=== PATIENT | male | born 1945 | race Caucasian/White ===

== ENCOUNTER 2016-05-07 16:55 | Inpatient (IN) | payer MEDICARE ==
[~2016-05-07] VITALS: Ht 172.7 cm; Wt 111.6 kg
--- NOTE | 2016-05-08 16:28 | ER ---
ADMIT: 05/07/2016 RM/LOC: 525 [facility] MR#: [id number] 2620 [facility] [address] [place] [phone] NICKY CASILLAS [address] [place] [place] [address] Emergency Room Report SEX: M AGE: 71 : 1945 DATE: 05/07/2016 ADDENDUM: A 71-year-old white male with COPD, coming in with coughing spell just not getting any better. CBC and chemistry are okay except his white count is up a little bit at 14.9, but could be due to steroids. Flu was negative. BNP was slightly up at 523. Blood gas on 3 L 7.46, pCO2 of 34, PO2 of 95. EKG nothing acute except he has chronic atrial fibrillation and he is little tachycardic. I gave him DuoNeb treatment and then 20 of Decadron IV. [facility] I spoke with Dr. Schrader, Dr. Negrete, and then they will need to admit. Advised, understands. CONDITION ON DISCHARGE: Good. Alvaro Madrid MD/ mack JOB #: [id number] CC: Hood Schrader MD, Attending Physician Hood Schrader MD, Family Physician
--- NOTE | 2016-05-11 08:30 | HP ---
ADMIT: 05/07/2016 RM/LOC: 525 [facility] MR#: [id number] [address] [facility] [address] [place] [phone] NICKY CASILLAS [address] [place] [address] History and Physical SEX: M AGE: 71 : 1945 DATE OF SERVICE: BRIEF HISTORY OF PRESENT ILLNESS: This is a 71-year-old [place] patient with COPD, who presents to the ER after an episode of acute shortness of breath and nausea resulting in a small stumble in a parking lot this evening. He had his son bring him into the ER for evaluation. The patient does have a history of COPD. He is on inhalers at home and chronically on 3 L of oxygen. He states that he uses it most of the time, but sometimes fine, he can get around his hose okay without any oxygen at all. Two days ago, he said he felt perfectly fine. Yesterday, he noted that he had some worsening short of breath. He does chronically have a cough with sputum production. It has been mildly increased over the last 24 hours. The patient denies any fevers or chest pain. In the emergency room, x-ray shows some interstitial markings, cardiomegaly, hyperinflation. The patient was initially hypoxic, but improved on supplemental oxygen. The [facility] is on diversion, so he is being admitted via [facility] for chronic obstructive pulmonary disease exacerbation. 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 SOCIAL HISTORY: The patient quit smoking a few years ago, quit drinking alcohol in 1987. FAMILY HISTORY: Noncontributory. SURGICAL HISTORY: Bilateral inguinal hernia repair and T and A as a child. MEDICATIONS: Still being obtained, although we placed on the chart when available. ALLERGIES: VICODIN AND MORPHINE, SPIRONOLACTONE, BUPROPION. REVIEW OF SYSTEMS: GENERAL: No fevers, headaches or weakness. HEENT: No sore throat, ear pain, runny nose or eye problems. CARDIOVASCULAR: Some mild lower extremity swelling, although no chest pain or palpitations. PULMONARY: History of COPD, chronic bronchitis, cough with mild sputum production worsening over the last day chronically on 3 L of oxygen at home. ABDOMEN: No nausea, vomiting, abdominal pain, or diarrhea. EXTREMITIES: Does show some chronic osteoporosis and low back pain. PHYSICAL EXAMINATION: VITAL SIGNS: Temp 97.3, heart rate 101, respirations 20, blood pressure 126/76, O2 saturation 98% on 3 L of O2. GENERAL: The patient is shaky from DuoNeb treatments, otherwise no acute distress. HEENT: EOMI. Normocephalic, atraumatic. No JVD. No carotid bruit noted. No lymphadenopathy palpated. CARDIOVASCULAR: Regular rhythm and rate. No murmurs, rubs, or gallops. ADMIT: 05/07/2016 RM/LOC: 525 [facility] MR#: [id number] [address] [place] [id number] VINNY [address]Y [address] [place] [address] History and Physical SEX: M AGE: 71 : 1945 PULMONARY: Right-sided or rhonchi. Left side clear to auscultation. ABDOMEN: Obese, nontender. Normoactive bowel sounds. EXTREMITIES: Show clubbing of the fingernails. Trace bilateral lower extremity edema, but no cyanosis. LABS AND IMAGING: White count 14.9, hemoglobin 14.3. Creatinine elevated at 1.4. Procal is negative. ASSESSMENT AND PLAN: 1. Chronic obstructive pulmonary disease exacerbation. Scheduled DuoNeb and p.r.n. breathing treatments as well. IV steroids b.i.d. and azithromycin with supplemental oxygen. 2. Hypertension. 3. Coronary artery disease. 4. Atrial fibrillation. 5. Diabetes. We will obtain patient's medication list and continue medications as appropriate. Vladimir Negrete MD Resident / Hood Schrader MD / modl JOB #: [id number] CC: Hood Schrader, Attending Physician Hood Schrader, Family Physician
--- NOTE | 2016-05-19 15:02 | CO ---
ADMIT: 05/10/2016 RM/LOC: 525 [facility] MR#: [id number] 2620 [facility] [address] [place], [place] [address] NICKY CASILLAS [address] [place] [address] Consultation SEX: M AGE: 71 : 1945 DATE OF CONSULTATION: 05/15/2016 ATTENDING PHYSICIAN: Hood Schrader CONSULTING PHYSICIAN: Irwin Ramirez MD REASON FOR CONSULT: Possible bradycardia and chest pain. HISTORY OF PRESENT ILLNESS: Nicky is a 71-year-old with chronic COPD, who was admitted with a COPD exacerbation. He has been here since the 05/07. His cardiac history is significant for atrial fibrillation which I think is permanent and they have been treating with [facility]. He is on chronic anticoagulation. He denies cardiac disease. He was admitted with increasing shortness of breath. He has been receiving steroids and antibiotics for COPD exacerbation. Last night, in the middle the night, he said he awoke with a very sharp, severe chest pain that went across his entire chest. It was rather brief and lasted 10 to 15 seconds associated with worsening shortness of breath. The nurses were concerned because they thought he was bradycardic. He then had problems with reflux later in the night. His cardiac enzymes have been negative. He has been now placed on telemetry. Since being on telemetry, he has not had any significant bradycardia. He denies syncope or presyncope. He said he has never had pain like this before. He does have some chronic lower extremity edema, but denies other manifestations of chronic heart failure which is somewhat confused by his chronic COPD. His troponin was checked last night and was unremarkable. Currently, he is resting comfortably. He denies any pain. He is trying to get some rest. PAST MEDICAL HISTORY: ALLERGIES: ALLERGIES TO MORPHINE, HYDROCODONE, ACETAMINOPHEN, SPIRONOLACTONE, AND BUPROPION. HOME MEDICATIONS: Include: 1. Albuterol inhaler q.i.d. 2. He was on Augmentin b.i.d. 3. Alendronate 70 mg. 4. Aspirin 81 daily. 5. Atorvastatin 20 daily. 6. Budesonide inhaler. 7. Calcium supplement. 8. Vitamin D 2000 units daily. 9. Pradaxa 150 b.i.d. 10.Diltiazem 120 daily. 11.Docusate as needed. 12.Doxycycline 100 b.i.d. 13.Eplerenone 25 daily. 14.Finasteride 5 daily. ADMIT: 05/10/2016 RM/LOC: 525 [facility] MR#: [id number] [address] [address] NICKY CASILLAS [facility] [address] [place], [place] [id number] Consultation SEX: M AGE: 71 : 1945 15.Flonase 2 sprays daily. 16.Lasix 40 mg daily. 17.Gabapentin 300 daily. 18.Guaifenesin 400 q.i.d. 19.Multivitamin daily. 20.Pantoprazole 40 daily. 21.Prednisone, he was on a taper. 22.Tramadol p.r.n. He is on migraine p.r.n. medication. ILLNESSES: Include his COPD; atrial fibrillation, which I believe is permanent; history of diabetes; migraine headaches; hyperlipidemia; history of hypertension. PAST SURGICAL HISTORY: Includes bilateral inguinal hernia repairs and a tonsillectomy as a child. He underwent an appendectomy in 2006. FAMILY HISTORY: His father had an HI when he was 75 years old. His mother of kidney failure. He has one brother and two sisters both of which are fairly healthy. SOCIAL HISTORY: Quit smoking "too late." It was about a year ago. 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 He is from [place], and his was from [place], but they are , they have four children. He denies using any alcohol. REVIEW OF SYSTEMS: A full 12-point review of systems was reviewed with the patient and noncontributory other than that mentioned above. PHYSICAL EXAMINATION: VITAL SIGNS: Blood pressure is 120/78, his pulse is in the 80s and irregular, respirations 18, he is afebrile, O2 sats 94% on supplemental oxygen. EYES: Sclerae clear. No xanthelasmas. SKIN: Mildly pale. Sequoyah, warm and dry. ENT: I cannot hear his carotid arteries or assess JVD because of his obesity. CHEST: Diffuse wheezes throughout, symmetric respirations. HEART: Distant. It is irregularly irregular. No significant murmurs, rubs, or gallops are noted. Difficult over his lung sounds. ABDOMEN: Protuberant to morbidly obese. Soft and nontender. Extremities. There is hair loss over the lower extremities with mild edema bilaterally up to his knees. MUSCULOSKELETAL: Gait is huyen PSYCHIATRIC: Alert and oriented. Mood and affect are appropriate. LABORATORY AND DIANGNOSTIC DATA: A 12-lead EKG shows underlying atrial fibrillation and low voltage. No definitive Q-waves. Sodium 137, potassium 4.8, BUN 25, glucose 152, creatinine is 1.1. AST and ADMIT: 05/10/2016 RM/LOC: 525 [facility] MR#: [id number] [address] [address] NICKY CASILLAS [address] [place] [address] Consultation SEX: M AGE: 71 : 1945 ALT were unremarkable. White count 17.4 with a hemoglobin of 13.2, and platelet count 180,000. Chest x-ray from this morning, shows some mild pulmonary hyperinflation and a few bibasilar opacities. No obvious pulmonary vascular congestion. IMPRESSION: 1. Atypical chest pain. 2. Chronic obstructive pulmonary disease exacerbation. 3. Permanent atrial fibrillation on chronic anticoagulation. 4. Diabetes. 5. Former tobacco abuse. 6. Obesity. RECOMMENDATIONS: Apparently, nursing was questioning whether he was bradycardic during this episode of chest pain. His chest pain is atypical. They were sharp and occurred at rest and was fleeting. He was not on telemetry, so I cannot confirm his rhythm during his episode of chest pain. We will check a couple sets of enzymes to make sure there is no obvious ischemic event. We will monitor him on telemetry to check for any bradycardia. Unless there is significant clinical change including an abnormal echo which we will do tomorrow, recurrent and significant symptoms, or increasing cardiac biomarkers, I will consider an outpatient stress test for further evaluation. Irwin Ramirez MD/ mack JOB #: [id number] CC: Hood Schrader, Attending Physician Hood Schrader, Family Physician Vladimir Negrete MD Resident
--- NOTE | 2016-05-19 20:36 | CO ---
ADMIT: 05/10/2016 RM/LOC: 525 [facility] MR#: [id number] [address] [address] NICKY KULKARNI [address] [place] [address] Consultation SEX: M AGE: 71 : 1945 DATE OF CONSULTATION: 05/18/2016 ATTENDING PHYSICIAN: Hood Schrader CONSULTING PHYSICIAN: Hal Fernandez MD LOCATION OF SERVICE: [facility]. REASON FOR CONSULTATION: Dr. Schrader has requested our consultation for goals and options of care. HISTORY OF PRESENT ILLNESS: This is a pleasant 71-year-old, elderly male, who [facility] and [facility] for his medical needs. He does report completing recent pulmonary function testing, but is unaware of those results. He does carry a medical diagnosis of COPD and does have a significant history of smoking, atrial fibrillation, diabetes, hyperlipidemia, hypertension. He is chronically on 3 L of oxygen per nasal cannula at home. He reports he is not on chronic steroids at home. He is unaware if he follows with a electric organ checker. He reports 2 days prior to admit on 05/07/2016, he developed a worsening shortness of breath. He denied fevers or chest pain and presented to the emergency room for further evaluation and treatment. He was found to be hypoxic and is currently under treatment for COPD exacerbation, pneumonia, acute on chronic hypoxic respiratory failure. We were asked by Dr. Schrader to further evaluate goals and options of care in light of his significant COPD. Current functional status reflects a palliative performance score of around 50. He is ambulating with assisted devices. He reports he is dyspneic with any activity. He reports, he does need assistance with self care. He is able to feed himself. His intake is reduced. His conscious level is full. Prior to admission, his functional status reflects a palliative performance score of around 60-70 per his report. He was ambulating with minimal assist, able to perform his own ADL. He was still driving. He reports his appetite was normal and his conscious level was full. He does complain of dyspnea with conversation as well as any activity. He reports anxiety comes when he experiences his shortness of breath. He explains at home he has had moments where he just could not get air and that he felt he was suffocating. He denies pain. He denies nausea, vomiting, or constipation. He does report of regular bowel movements. He does report fatigue. 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 SOCIAL HISTORY: He currently lives in [place] with his son, and his family. He is hopeful to arrange different living arrangements in the future. He is . He does have 4 kids. He did spend some time in the [employer] and ADMIT: 05/10/2016 RM/LOC: 525 [facility] MR#: [id number] [address] [address] NICKY KULK[address]NI [address] [address] Consultation SEX: M AGE: 71 : 1945 was in [place]. He has a significant history of smoking starting in 1962. He reports he quit in 2015. He reports his heaviest was during [place] where he would smoke 3-4 cartons a week. He reported his average after the [employer] was around 2 packs per day. He reports he started drinking mostly beer, but really anything he could drink that was alcohol, started in 1962 and quit in 1987. He is Jain. [facility]. ADVANCED DIRECTIVE AND CODE STATUS: He does have healthcare [id number] which is his son Salazar Kulkarni at #[phone]. He is a full code status. FAMILY HISTORY: Reviewed and noncontributory. CURRENT MEDICATIONS: Include: 1. Mucinex. 2. Tiazac. 3. Deltasone. 4. Vancomycin. 5. Zosyn. 6. Pepcid. 7. NovoLog. 8. Fosamax. 9. Remeron. 10.Pradaxa. 11.Lipitor. 12.Multivitamin. 13.Neurontin. 14.Lasix. 15.Flonase. 16.Proscar. 17.Inspra. 18.Colace. 19.Vitamin D. 20.Oyster shell calcium. 21.ASA. 22.Zomig. 23.Ultram. 24.Pulmicort. 25.Mucomyst. 26.DuoNeb. 27.Maalox. 28.Tylenol. ALLERGIES: MORPHINE, HYDROCODONE, ACETAMINOPHEN, SPIRONOLACTONE, BUPROPION. REVIEW OF SYSTEMS: A 10-point review of system was conducted, however, was unremarkable except as noted in HPI and PMH. PHYSICAL EXAMINATION: CONSTITUTIONAL: Weight is 112.7 kg. Please see medical ADMIT: 05/10/2016 RM/LOC: 525 [facility] MR#: [id number] [address] [place] [phone] NICKY KULKARNI [address] [place] [address] Consultation SEX: M AGE: 71 : 1945 record for height and BMI. GENERAL STATUS: This is an elderly male, in no acute distress, alert and oriented, able to participate fully in consultation. VITAL SIGNS: Temperature of 97.2, heart rate 102, respiratory rate 18, blood pressure 129/86. He is on 3 L of oxygen per nasal cannula, and oxygenating at 98%. HEENT: Head is normocephalic, atraumatic. He is not wearing glasses. Pupils are 4 mm. PERRLA. Hearing is intact bilaterally. Oral mucosa is pink and moist. Dentition is worn. Anicteric sclerae. Conjunctivae pale. NECK: No lymphadenopathy. Trachea is midline. Supple. No JVD. RESPIRATORY STATUS: Respiratory rate is regular, slightly labored with activity. He does have rhonchus bilaterally anteriorly and posteriorly. He does have an expiratory wheeze with prolonged expiratory phase. CARDIOVASCULAR: Rate and rhythm are regular at this time. I do not auscultate rubs, murmurs, clicks, or gallops. GASTROINTESTINAL: Abdomen is obese, nontender, nondistended. Positive bowel sounds in all 4 quadrants. EXTREMITIES: Upper and lower extremities are free of cyanosis or clubbing. He does have bilateral lower extremity edema at 3+. NEUROLOGICAL: He is alert and oriented x3. He does follow commands. He moves all limbs. INTEGUMENTARY: Skin temperature is warm. Skin is intact. PSYCHIATRIC: Affect is appropriate. Insight is intact. He is cooperative with cares. DIAGNOSTIC DATA: Laboratory work reveals sodium 140, potassium 4.6, chloride 103, urea 34, glucose 134, creatinine 1.1, albumin 2.6 on May 14. WBC 18.3, hemoglobin 13.3, hematocrit 40.5, and platelets 167. RADIOLOGY: Reports have been reviewed, please see EMR for details. IMPRESSION AND PLAN: 1. Physical debility. 2. Dyspnea with rest intermittently, with talking and any activity. 3. Anxiety, Mr. Kulkarni associates this with dyspnea. 4. Chronic obstructive pulmonary disease with an acute exacerbation. Baseline needs are oxygen supplementation 24 hours a day, 7 days a week at 3 L per nasal cannula. He is not on chronic steroids per his report and he continues his pulmonary inhalers at home. 5. History of significant tobacco use. Smoking from 1963 to 2016, average 2 packs per day but did smoke 3-4 cartons a week in the [place]. 6. Pneumonia. 7. Acute on chronic hypoxic respiratory failure. 8. Permanent atrial fibrillation, currently on anticoagulation with Pradaxa. 9. Diabetes type 2. 10.Obesity. 11.Bladder wall density with recent scrotal abscess with extension to bladder. ADMIT: 05/10/2016 RM/LOC: 525 [facility] MR#: [id number] 2620 [facility] [address] [place], [place] [address] NICKY KULKARNI [address] [place] [address] Consultation SEX: M AGE: 71 : 1945 12.History of alcohol abuse. From 1962 to 1987. 13.Palliative care. 14.Full code status. I did have a nice long talk with Mr. Kulkarni at the bedside and we did review his past medical history, as well as his current hospitalization needs. He expresses being aware of his COPD needs, but feels he is unaware of the severity of his COPD. Mr. Kulkarni does report "I just had pulmonary [facility]." I will request these records to review to help guide us and communication concerning the severity of his COPD. He does complain of dyspnea with rest and activity and does associate anxiety with this experienced dyspnea. He explains "at times I just do not think I will make it." I will trial low-dose OxyFAST as he is allergic to morphine and continue to monitor. He may need a trial of Xanax in addition to OxyFAST if his anxiety is not controlled. We discussed goals for his care and his #1 goal is to get better and to get home and work with family on a new living arrangement. We did discuss code status options, full code versus do not resuscitate/do not intubate status and at this time he does confirm a full code status. He will ponder all options, but does request more information concerning the severity of his COPD prior to making any changes in that decision. Much support given during this consultation. I did offer to call his son/healthcare power-of- trademark attorney, Salazar Kulkarni, however, the patient declined that at this time. Patient reports that he will talk to his family about this consultation. We will continue to follow Mr. Kulkarni during this hospitalization and continue our discussion concerning goals and options of care as more information is available. I have discussed this consultation with nursing staff. Laly Kelly APRN will follow up on 05/19/2016. I would like to thank Dr. Schrader for the invitation to participate in Mr. Kulkarni's care. Total consultation time was from 0945 hours to 1046 hours on 05/18/2016 by the Palliative Medicine ROPE TWISTING MACHINE OPERATOR. Greater than 50% of time was spent in counseling and coordination of care at the bedside. Mayela Loredo APRN / Hal Fernandez MD / mack JOB #: [id number] CC: Hood Schrader, Attending Physician Hood Schrader, Family Physician
--- NOTE | 2016-06-09 07:39 | DS ---
ADMIT: 05/10/2016 RM/LOC: 525 [facility] MR#: [id number] [id number] [facility] [address] [place] [phone] NICKY CASILLAS [address] [place] [address] Discharge Summary SEX: M AGE: 71 : 1945 ADMISSION DATE: 05/10/2016 DISCHARGE DATE: 05/20/2016 DISCHARGE DIAGNOSES: 1. Acute COPD (chronic obstructive pulmonary disease) exacerbation, resolved. 2. Pneumonia. 3. Atrial fibrillation. 4. Type 2 diabetes. 5. Obesity. 6. History of tobacco abuse. 7. Debility. 8. Anxiety. 9. Bladder wall thickening thought to represent scarring from recent scrotal infection, resolved. CONSULTATIONS: 1. Pulmonology. 2. Supportive care. 3. Cardiology. BRIEF HISTORY OF PRESENT ILLNESS: The patient is a 71[facility]-old [facility] patient, with history of COPD who presented to the ER with an episode of acute shortness of breath that caused him to stumble and fall in the parking lot. He is chronically on 3 L of oxygen at home. Previously had felt well two days prior, but had worsening shortness of breath, cough with sputum production over the last 24 hours. In the emergency room, the patient was initially hypoxic but improved on supplemental oxygen. The [facility] was on [facility] so he was admitted via [facility] for COPD (chronic obstructive pulmonary disease) exacerbation. Started on DuoNebs, IV steroids and IV azithromycin. HOSPITAL COURSE: Mucomyst was added to the patient's respiratory schedule. He was also started on Rocephin and blood sugars were checked given his type 2 diabetes. IV steroids were stopped on hospital day three and he was switched to a p.o. regimen. He remained on 3 L of O2, which is his chronic home dose. The [facility] remained on [facility] and so the patient stayed and became inpatient status in our hospital. On hospital day four, the patient's vitals were clinically stable and labs had improved but he was still hesitant to go home. IV antibiotics were discontinued. He was started on oral Keflex and one last chest x-ray was performed before the patient was to be discharged. Chest x- ray showed new developing bilateral lower lobe opacities so dismissal was cancelled. The patient was given a midline IV and started on Zosyn and vancomycin for suspected hospital-acquired pneumonia. The patient was restarted on IV steroids and breathing treatments continued. On 05/15, over night the patient became bradycardic with heart rate into the 30s and complained of increased chest pain. The patient was changed to tele status and Cardiology was consulted for his symptomatic bradycardia. They diagnosed the patient with atypical chest pain, COPD exacerbation and permanent atrial fibrillation for which he is already on Pradaxa. An echo was ordered, however ADMIT: 05/10/2016 RM/LOC: 525 [facility] MR#: [id number] [address] [place] [phone] [place] [address] Discharge Summary SEX: M AGE: 71 : 1945 one had recently been done in the [place] so that echo was obtained and reviewed. Social Work was consulted for possible [facility] facility placement as patient's clinical status and frailty became more of an issue and concern. Abdominal ultrasound was ordered due to the patient's clinical ascites. It was negative and attributed to the patient's increased steroids and IV fluids that he has been receiving during his hospitalization. IV steroids were again stopped and he was replaced with an oral steroid taper. On the ultrasound, a bladder wall density was noted but son informed us that the patient recently had a scrotal abscess that was treated with antibiotics and this was thought to be bladder scarring due to that infection. Social Work continued to look into [facility] facility options. The [facility] remain on [facility]. Cardiology increased the patient's Cardizem to help control heart rate. There was no additional chest pain so they signed off attributing that one episode of chest pain to his respiratory illness. On 05/18, Supportive Care was consulted due to patient's COPD with declining status. He was started on Lasix for swelling and DC'd on tele. Supportive Care met with the patient and discussed goals of treatment and helped to arrange Mental Health Services with the [facility] given patient's anxiety and possible PTSD due to his time spent in [facility]. On 05/19, pulmonology was consulted to evaluate the patient for optimal management of his COPD at son's request. The patient had been seeing pulmonology at the [facility] but son would like a second opinion. The next day, we were informed by the [facility] that they had a bed available so the patient was transferred to the [facility] on 05/20. DISCHARGE MEDICATIONS: 1. Aspirin 81 mg daily. 2. Cardizem 120 mg daily. 3. Colace 200 mg daily. 4. Prednisone 20 mg p.o. daily for five days, 10 mg for 5 days, then 5 mg for 5 days, then discontinue. 5. Fosamax 70 mg p.o. weekly. 6. Inspra 25 mg daily. 7. Lasix 40 mg daily. 8. Lipitor 10 mg at night. 9. Neurontin 300 mg daily. 10.Organidin 400 mg q.i.d. 11.Calcium supplement b.i.d. 12.Pepcid 20 mg b.i.d. 13.Pradaxa 150 mg b.i.d. 14.Proscar 55 mg daily. ADMIT: 05/10/2016 RM/LOC: 525 [facility] MR#: [id number] [address] [address] NICKY CASILLAS [address] [place] [address] Discharge Summary SEX: M AGE: 71 : 1945 15.Remeron 30 mg at bedtime. 16.Multivitamin. 17.Vitamin C supplement daily. 18.DuoNebs q.i.d. 19.Pulmicort b.i.d. 20.Flonase 2 sprays b.i.d. 21.Mycostatin topically b.i.d. 22.Voltaren gel applied locally q.i.d. 23.He was also discharged on Keflex 500 2 tabs b.i.d. for a week. DISCHARGE INSTRUCTIONS: [facility] appointments with the [facility] next week. Was to be sent home on 3 L of O2 chronically. Diet as tolerated. Vladimir Negrete MD Resident / Hood Schrader MD / vdg JOB #: [id number] CC: Hood Schrader MD, Attending Physician Hood Schrader MD, Family Physician
[2016-08-17] MEDS ORDERED: COREG DPS6.25 MG PO (13:11)
[2016-08-17] MEDS ORDERED: ASPIRIN EC81 MG PO (13:11)
[2016-08-17] MEDS ORDERED: COLACE-DPS100 MG PO (13:11)
[2016-08-17] MEDS ORDERED: IMDUR DPS30 MG PO (13:12)
[2016-08-17] MEDS ORDERED: LANOXIN DPS0.125 MG PO (13:12)
[2016-08-17] MEDS ORDERED: INSPRA50 MG PO (13:12)
[2016-08-17] MEDS ORDERED: ELIQUIS5 MG PO (13:12)
[2016-08-17] MEDS ORDERED: DEMADEX DPS100 MG PO ×2 (13:12→13:29)
[2016-08-17] MEDS ORDERED: PEPCID DPS20 MG PO (13:13)
[2016-08-17] MEDS ORDERED: LIPITOR DPS10 MG PO (13:13)
[2016-08-17] MEDS ORDERED: PROSCAR DPS5 MG PO (13:13)
[2016-08-17] MEDS ORDERED: REMERON DPS30 MG PO (13:13)
[2016-08-17] MEDS ORDERED: NEURONTIN DPS300 MG PO (13:13)
[2016-08-17] MEDS ORDERED: ORGAN-I NR200 MG PO (13:13)
[2016-08-17] MEDS ORDERED: DULERA 200/58.8 GM IH (13:14)
[2016-08-17] MEDS ORDERED: DUONEB DPS3 ML IH (13:14)
[2016-08-17] MEDS ORDERED: TIAZAC180 MG PO (13:14)
[2016-08-17] MEDS ORDERED: ACETYLCYSTEINE 10% IH (13:15)
[2016-08-17] MEDS ORDERED: LEVAQUIN DPS750 MG PO (13:15)
[2016-08-17] MEDS ORDERED: ACETAMINOPHEN325 MG PO (13:17)
[2016-08-17] MEDS ORDERED: ALENDRONATE SOD70 MG PO (13:18)
[2016-08-17] MEDS ORDERED: ACCUNEB DP0.63 MG/3 IH (13:18)
[2016-08-17] MEDS ORDERED: BENZONATATE200 MG PO (13:20)
[2016-08-17] MEDS ORDERED: CALCIUM CARBON500 MG PO (13:20)
[2016-08-17] MEDS ORDERED: VITAMIN D-32000 UNI1 PO (13:21)
[2016-08-17] MEDS ORDERED: VOLTAREN 1% GE100 GM TP (13:22)
[2016-08-17] MEDS ORDERED: FLONASE 0.05% D16 GM NS (13:26)
[2016-08-17] MEDS ORDERED: ZAROXOLYN2.5 MG PO (13:27)
[2016-08-17] MEDS ORDERED: ATIVAN-DPS0.5 MG PO (13:27)
[2016-08-17] MEDS ORDERED: ANTIVERT-DPS25 MG PO (13:27)
[2016-08-17] MEDS ORDERED: MICONAZOLE100 GM TP (13:28)
[2016-08-17] MEDS ORDERED: KLOR-CON M2020 ME1 PO (13:29)
[2016-08-17] MEDS ORDERED: DELTASONE DPS10 MG PO (13:29)
[2016-08-17] MEDS ORDERED: DAILY MULTIPLE1 EAC1 PO (13:29)
[2016-08-17] MEDS ORDERED: NITROSTAT0.4 MG SL (13:29)
[2016-08-17] MEDS ORDERED: ULTRAM DPS50 MG PO (13:30)
[2016-09-10] MEDS ORDERED: ASA CHILDREN'S81 MG PO (11:45)
[2016-09-10] MEDS ORDERED: CARDIZEM CD DP120 MG PO (11:45)
[2016-09-10] MEDS ORDERED: IMDUR DPS30 MG PO (11:46)
[2016-09-10] MEDS ORDERED: LIPITOR DPS10 MG PO (11:46)
[2016-09-10] MEDS ORDERED: CARVEDILOL3.125 MG PO (11:46)
[2016-09-10] MEDS ORDERED: PEPCID DPS20 MG PO (11:46)
[2016-09-10] MEDS ORDERED: NEURONTIN DPS300 MG PO (11:46)
[2016-09-10] MEDS ORDERED: ORGAN-I NR200 MG PO (11:46)
[2016-09-10] MEDS ORDERED: ELIQUIS5 MG PO (11:46)
[2016-09-10] MEDS ORDERED: REMERON DPS30 MG PO (11:47)
[2016-09-10] MEDS ORDERED: SENOKOT S1 TAB PO (11:47)
[2016-09-10] MEDS ORDERED: VIBRAMYCIN-DPS100 M2 PO (11:47)
[2016-09-10] MEDS ORDERED: PROSCAR DPS5 MG PO (11:47)
[2016-09-10] MEDS ORDERED: DUONEB DPS3 ML IH (11:48)
[2016-09-10] MEDS ORDERED: OCEAN NASAL MIS45 ML IH (11:48)
[2016-09-10] MEDS ORDERED: DULERA 200/58.8 GM IH (11:48)
[2016-11-15] MEDS ORDERED: DELTASONE DPS20 MG PO (13:03)
[2016-11-15] MEDS ORDERED: LANOXIN125 MCG PO (13:14)
[2016-11-15] MEDS ORDERED: INSPRA25 MG PO (13:14)
[2016-11-15] MEDS ORDERED: LEVAQUIN DPS750 MG PO (13:17)
[2016-11-15] MEDS ORDERED: LIPITOR DPS10 MG PO (13:18)
[2016-11-15] MEDS ORDERED: MIRALAX PACKET17 GM PO (13:18)
[2016-11-15] MEDS ORDERED: XARELTO20 MG PO (13:21)
[2016-11-15] MEDS ORDERED: MUCOMYST 20% IH (13:22)
[2016-11-15] MEDS ORDERED: NOVOLOG100 UNIT/2 SQ (13:23)
[2016-11-15] MEDS ORDERED: ACETAMINOPHEN325 MG PO (13:35)
[2016-11-15] MEDS ORDERED: ACETYLCYST200 MG/1 M IH (13:36)
[2016-11-15] MEDS ORDERED: PROVENTIL2.5 MG/3 M IH (13:36)
[2016-11-15] MEDS ORDERED: FOSAMAX70 MG PO (13:38)
[2016-11-15] MEDS ORDERED: BIOTENE PO (13:39)
[2016-11-15] MEDS ORDERED: DULCOLAX-DPS10 MG PR (13:40)
[2016-11-15] MEDS ORDERED: VITAMIN D-32000 UNI1 PO (13:41)
[2016-11-15] MEDS ORDERED: SYMBICORT160 MCG/6 IH (13:41)
[2016-11-15] MEDS ORDERED: CALTRATE-600 D600 MG PO (13:41)
[2016-11-15] MEDS ORDERED: FLEXERIL-DPS10 MG PO (13:42)
[2016-11-15] MEDS ORDERED: NITROSTAT0.4 MG SL (13:43)
[2016-11-15] MEDS ORDERED: OXY IR DPS5 MG PO (13:44)
[2016-11-15] MEDS ORDERED: ZAROXOLYN5 MG PO (13:44)
[2016-11-15] MEDS ORDERED: MIRALAX17 GM PO (13:45)
[2016-11-15] MEDS ORDERED: IMDUR DPS30 MG PO (13:46)
[2016-11-15] MEDS ORDERED: TORSEMIDE100 MG PO (13:49)
[2016-11-15] MEDS ORDERED: POTASSIUM CHLO20 MEQ PO (13:49)
[2016-11-15] MEDS ORDERED: SODIUM CHLORIDE45 ML NS (13:50)
== END 2016-05-20 13:08 | DRG 177 ==
LOC: ER 16:55 → 5MS 19:45
PROVIDERS: ADMIT Family Medicine
DX: J15.6 Pneumonia due to other Gram-negative bacteria (principal); J96.21 Acute and chronic respiratory failure with hypoxia; I11.0 Hypertensive heart disease with heart failure; Z99.81 Dependence on supplemental oxygen; I48.2 Chronic atrial fibrillation; I50.32 Chronic diastolic (congestive) heart failure; E11.9 Type 2 diabetes mellitus without complications; J44.1 Chronic obstructive pulmonary disease with (acute) exacerbation; G43.909 Migraine, unspecified, not intractable, without status migrainosus; G47.30 Sleep apnea, unspecified; E66.9 Obesity, unspecified; F41.9 Anxiety disorder, unspecified; E78.5 Hyperlipidemia, unspecified; R07.89 Other chest pain; R25.1 Tremor, unspecified; M81.0 Age-related osteoporosis without current pathological fracture; I25.10 Atherosclerotic heart disease of native coronary artery without angina pectoris; Z86.73 Personal history of transient ischemic attack (TIA), and cerebral infarction without residual deficits; Z82.49 Family history of ischemic heart disease and other diseases of the circulatory system; Z87.891 Personal history of nicotine dependence; Z68.36 Body mass index [BMI] 36.0-36.9, adult

== ENCOUNTER 2016-06-10 09:55 | Emergency (ER) | payer MEDICARE ==
--- NOTE | 2016-06-18 08:11 | ER ---
ADMIT: 06/10/2016 RM/LOC: ER [facility] MR#: [id number] [address] [address] NICKY CASILLAS [address] [place] [address] Emergency Room Report SEX: M AGE: 71 : 1945 DATE: 06/10/2016 HISTORY OF PRESENT ILLNESS: A 71-year-old [facility] patient comes to the Emergency Department with complaints of substernal chest pain or burning. He states he gets this frequently. It is typically relieved by an antacid. He does have a history of GERD. He has had an extensive cardiac workup at the [facility] for similar episodes of chest pain. I did speak with the [facility] colorman, who read the stress echo, which was done in April 28, 2016, and the results of which were only atrial enlargement, which they felt was secondary to his chronic atrial fibrillation. The colorman reported that the test is otherwise unremarkable and normal. See T-sheet for history and physical after consulting with the [facility] colorman. The patient is being discharged back to the [facility] here. DIAGNOSIS: Atypical chest pain. Instructed him to follow up with his physician this coming Monday. Jordi Sun MD/ mack JOB #: [id number] CC: Jordi Sun MD, Attending Physician
[2016-08-17] MEDS ORDERED: ASPIRIN EC81 MG PO (13:11)
[2016-08-17] MEDS ORDERED: COLACE-DPS100 MG PO (13:11)
[2016-08-17] MEDS ORDERED: COREG DPS6.25 MG PO (13:11)
[2016-08-17] MEDS ORDERED: INSPRA50 MG PO (13:12)
[2016-08-17] MEDS ORDERED: LANOXIN DPS0.125 MG PO (13:12)
[2016-08-17] MEDS ORDERED: ELIQUIS5 MG PO (13:12)
[2016-08-17] MEDS ORDERED: IMDUR DPS30 MG PO (13:12)
[2016-08-17] MEDS ORDERED: DEMADEX DPS100 MG PO ×2 (13:12→13:29)
[2016-08-17] MEDS ORDERED: REMERON DPS30 MG PO (13:13)
[2016-08-17] MEDS ORDERED: NEURONTIN DPS300 MG PO (13:13)
[2016-08-17] MEDS ORDERED: PEPCID DPS20 MG PO (13:13)
[2016-08-17] MEDS ORDERED: LIPITOR DPS10 MG PO (13:13)
[2016-08-17] MEDS ORDERED: ORGAN-I NR200 MG PO (13:13)
[2016-08-17] MEDS ORDERED: PROSCAR DPS5 MG PO (13:13)
[2016-08-17] MEDS ORDERED: TIAZAC180 MG PO (13:14)
[2016-08-17] MEDS ORDERED: DUONEB DPS3 ML IH (13:14)
[2016-08-17] MEDS ORDERED: DULERA 200/58.8 GM IH (13:14)
[2016-08-17] MEDS ORDERED: LEVAQUIN DPS750 MG PO (13:15)
[2016-08-17] MEDS ORDERED: ACETYLCYSTEINE 10% IH (13:15)
[2016-08-17] MEDS ORDERED: ACETAMINOPHEN325 MG PO (13:17)
[2016-08-17] MEDS ORDERED: ALENDRONATE SOD70 MG PO (13:18)
[2016-08-17] MEDS ORDERED: ACCUNEB DP0.63 MG/3 IH (13:18)
[2016-08-17] MEDS ORDERED: BENZONATATE200 MG PO (13:20)
[2016-08-17] MEDS ORDERED: CALCIUM CARBON500 MG PO (13:20)
[2016-08-17] MEDS ORDERED: VITAMIN D-32000 UNI1 PO (13:21)
[2016-08-17] MEDS ORDERED: VOLTAREN 1% GE100 GM TP (13:22)
[2016-08-17] MEDS ORDERED: FLONASE 0.05% D16 GM NS (13:26)
[2016-08-17] MEDS ORDERED: ATIVAN-DPS0.5 MG PO (13:27)
[2016-08-17] MEDS ORDERED: ZAROXOLYN2.5 MG PO (13:27)
[2016-08-17] MEDS ORDERED: ANTIVERT-DPS25 MG PO (13:27)
[2016-08-17] MEDS ORDERED: MICONAZOLE100 GM TP (13:28)
[2016-08-17] MEDS ORDERED: KLOR-CON M2020 ME1 PO (13:29)
[2016-08-17] MEDS ORDERED: DELTASONE DPS10 MG PO (13:29)
[2016-08-17] MEDS ORDERED: NITROSTAT0.4 MG SL (13:29)
[2016-08-17] MEDS ORDERED: DAILY MULTIPLE1 EAC1 PO (13:29)
[2016-08-17] MEDS ORDERED: ULTRAM DPS50 MG PO (13:30)
[2016-09-10] MEDS ORDERED: CARDIZEM CD DP120 MG PO (11:45)
[2016-09-10] MEDS ORDERED: ASA CHILDREN'S81 MG PO (11:45)
[2016-09-10] MEDS ORDERED: IMDUR DPS30 MG PO (11:46)
[2016-09-10] MEDS ORDERED: LIPITOR DPS10 MG PO (11:46)
[2016-09-10] MEDS ORDERED: PEPCID DPS20 MG PO (11:46)
[2016-09-10] MEDS ORDERED: ELIQUIS5 MG PO (11:46)
[2016-09-10] MEDS ORDERED: CARVEDILOL3.125 MG PO (11:46)
[2016-09-10] MEDS ORDERED: ORGAN-I NR200 MG PO (11:46)
[2016-09-10] MEDS ORDERED: NEURONTIN DPS300 MG PO (11:46)
[2016-09-10] MEDS ORDERED: PROSCAR DPS5 MG PO (11:47)
[2016-09-10] MEDS ORDERED: REMERON DPS30 MG PO (11:47)
[2016-09-10] MEDS ORDERED: SENOKOT S1 TAB PO (11:47)
[2016-09-10] MEDS ORDERED: VIBRAMYCIN-DPS100 M2 PO (11:47)
[2016-09-10] MEDS ORDERED: DULERA 200/58.8 GM IH (11:48)
[2016-09-10] MEDS ORDERED: OCEAN NASAL MIS45 ML IH (11:48)
[2016-09-10] MEDS ORDERED: DUONEB DPS3 ML IH (11:48)
[2016-11-15] MEDS ORDERED: DELTASONE DPS20 MG PO (13:03)
[2016-11-15] MEDS ORDERED: INSPRA25 MG PO (13:14)
[2016-11-15] MEDS ORDERED: LANOXIN125 MCG PO (13:14)
[2016-11-15] MEDS ORDERED: LEVAQUIN DPS750 MG PO (13:17)
[2016-11-15] MEDS ORDERED: MIRALAX PACKET17 GM PO (13:18)
[2016-11-15] MEDS ORDERED: LIPITOR DPS10 MG PO (13:18)
[2016-11-15] MEDS ORDERED: XARELTO20 MG PO (13:21)
[2016-11-15] MEDS ORDERED: MUCOMYST 20% IH (13:22)
[2016-11-15] MEDS ORDERED: NOVOLOG100 UNIT/2 SQ (13:23)
[2016-11-15] MEDS ORDERED: ACETAMINOPHEN325 MG PO (13:35)
[2016-11-15] MEDS ORDERED: PROVENTIL2.5 MG/3 M IH (13:36)
[2016-11-15] MEDS ORDERED: ACETYLCYST200 MG/1 M IH (13:36)
[2016-11-15] MEDS ORDERED: FOSAMAX70 MG PO (13:38)
[2016-11-15] MEDS ORDERED: BIOTENE PO (13:39)
[2016-11-15] MEDS ORDERED: DULCOLAX-DPS10 MG PR (13:40)
[2016-11-15] MEDS ORDERED: CALTRATE-600 D600 MG PO (13:41)
[2016-11-15] MEDS ORDERED: SYMBICORT160 MCG/6 IH (13:41)
[2016-11-15] MEDS ORDERED: VITAMIN D-32000 UNI1 PO (13:41)
[2016-11-15] MEDS ORDERED: FLEXERIL-DPS10 MG PO (13:42)
[2016-11-15] MEDS ORDERED: NITROSTAT0.4 MG SL (13:43)
[2016-11-15] MEDS ORDERED: OXY IR DPS5 MG PO (13:44)
[2016-11-15] MEDS ORDERED: ZAROXOLYN5 MG PO (13:44)
[2016-11-15] MEDS ORDERED: MIRALAX17 GM PO (13:45)
[2016-11-15] MEDS ORDERED: IMDUR DPS30 MG PO (13:46)
[2016-11-15] MEDS ORDERED: POTASSIUM CHLO20 MEQ PO (13:49)
[2016-11-15] MEDS ORDERED: TORSEMIDE100 MG PO (13:49)
[2016-11-15] MEDS ORDERED: SODIUM CHLORIDE45 ML NS (13:50)
== END 2016-06-10 13:04 | disposition home or self-care (01) ==
LOC: ER 09:55
DX: R07.89 Other chest pain (principal); I10 Essential (primary) hypertension; K21.9 Gastro-esophageal reflux disease without esophagitis; E11.9 Type 2 diabetes mellitus without complications; Z88.5 Allergy status to narcotic agent

== ENCOUNTER 2016-06-19 20:12 | Emergency (ER) | payer MEDICARE ==
--- NOTE | 2016-06-20 13:27 | ER ---
ADMIT: 06/19/2016 RM/LOC: ER [facility] MR#: [id number] [address] [address] NICKY CASILLAS [address] [place] [address] Emergency Room Report SEX: M AGE: 71 : 1945 DATE: 06/19/2016 HISTORY OF PRESENT ILLNESS: The patient is a 71-year-old male with a past medical history of CHF, atrial fibrillation, diabetes, and a stroke, who was brought here from the [facility] for 20 minutes of chest pain. The pain was in lower mid chest and epigastric area, and the patient states the pain is started gradually and increased in severity and resolved by itself. The patient has previous similar pain, which was resolved and per chart has a history of gastroesophageal reflux disease. The patient states he has a baseline shortness of breath and it has not increased recently. The patient states he feels okay and he wants to go back and has no complaint. PHYSICAL EXAMINATION: VITAL SIGNS: In the ER, the patient was slightly hypertensive, systolic blood pressure was in mid 80s, the patient was not tachycardic, EKG showed atrial fibrillation with a rate of 80s. The patient was mildly tachypneic at 22 to 24 breaths, but O2 saturation was good in the mid 90s on room air. HEAD AND NECK: The patient had no erythema in the throat, pupils are 3 mm, reactive to light, trachea is midline, there is no bruit on the neck. HEART: Normal S1, S2, I did not hear any gallops of S3 or S4. LUNGS: The patient had bilateral crackles at the bases of the lungs on the posterior sides with decreased breathing sounds mostly on the left side at the base. ABDOMEN: Mildly distended, but was nontender, and there were no rebound or guarding. EXTREMITIES: There were pitting edema in the bilateral lower legs and feet with normal capillary filling and peripheral pulses. There were no tenderness on the calf. The rest of the physical exam was noncontributory. The patient received half a liter of IV fluid, blood pressure systolic came to 108/65. Troponin I was negative. BNP was in the range of 304, knowing that the patient has a history of gastroesophageal reflux disease, the patient was given 30 mL of GI cocktail. WBC was 8.5 with a hemoglobin of 11, D-dimer was mildly elevated 0.59, which could be justified by heart failure too. Chest x- ray was done, which showed mild pleural effusion mostly on the left side without any obvious infiltration, CT angiogram of the chest was negative for any pulmonary emboli. The patient's blood pressure improved, and he is symptom free. BNP was also in the range of 304. The patient was discharged to the [facility] to be followed up by the primary doctor as needed. Jalen Dugan MD/ mack JOB #: [id number] CC: Malachi Greer MD, Attending Physician [facility] Physician, Family Physician
[2016-08-17] MEDS ORDERED: COLACE-DPS100 MG PO (13:11)
[2016-08-17] MEDS ORDERED: ASPIRIN EC81 MG PO (13:11)
[2016-08-17] MEDS ORDERED: COREG DPS6.25 MG PO (13:11)
[2016-08-17] MEDS ORDERED: DEMADEX DPS100 MG PO ×2 (13:12→13:29)
[2016-08-17] MEDS ORDERED: INSPRA50 MG PO (13:12)
[2016-08-17] MEDS ORDERED: LANOXIN DPS0.125 MG PO (13:12)
[2016-08-17] MEDS ORDERED: IMDUR DPS30 MG PO (13:12)
[2016-08-17] MEDS ORDERED: ELIQUIS5 MG PO (13:12)
[2016-08-17] MEDS ORDERED: LIPITOR DPS10 MG PO (13:13)
[2016-08-17] MEDS ORDERED: PROSCAR DPS5 MG PO (13:13)
[2016-08-17] MEDS ORDERED: PEPCID DPS20 MG PO (13:13)
[2016-08-17] MEDS ORDERED: NEURONTIN DPS300 MG PO (13:13)
[2016-08-17] MEDS ORDERED: ORGAN-I NR200 MG PO (13:13)
[2016-08-17] MEDS ORDERED: REMERON DPS30 MG PO (13:13)
[2016-08-17] MEDS ORDERED: DULERA 200/58.8 GM IH (13:14)
[2016-08-17] MEDS ORDERED: TIAZAC180 MG PO (13:14)
[2016-08-17] MEDS ORDERED: DUONEB DPS3 ML IH (13:14)
[2016-08-17] MEDS ORDERED: ACETYLCYSTEINE 10% IH (13:15)
[2016-08-17] MEDS ORDERED: LEVAQUIN DPS750 MG PO (13:15)
[2016-08-17] MEDS ORDERED: ACETAMINOPHEN325 MG PO (13:17)
[2016-08-17] MEDS ORDERED: ALENDRONATE SOD70 MG PO (13:18)
[2016-08-17] MEDS ORDERED: ACCUNEB DP0.63 MG/3 IH (13:18)
[2016-08-17] MEDS ORDERED: BENZONATATE200 MG PO (13:20)
[2016-08-17] MEDS ORDERED: CALCIUM CARBON500 MG PO (13:20)
[2016-08-17] MEDS ORDERED: VITAMIN D-32000 UNI1 PO (13:21)
[2016-08-17] MEDS ORDERED: VOLTAREN 1% GE100 GM TP (13:22)
[2016-08-17] MEDS ORDERED: FLONASE 0.05% D16 GM NS (13:26)
[2016-08-17] MEDS ORDERED: ANTIVERT-DPS25 MG PO (13:27)
[2016-08-17] MEDS ORDERED: ATIVAN-DPS0.5 MG PO (13:27)
[2016-08-17] MEDS ORDERED: ZAROXOLYN2.5 MG PO (13:27)
[2016-08-17] MEDS ORDERED: MICONAZOLE100 GM TP (13:28)
[2016-08-17] MEDS ORDERED: NITROSTAT0.4 MG SL (13:29)
[2016-08-17] MEDS ORDERED: DAILY MULTIPLE1 EAC1 PO (13:29)
[2016-08-17] MEDS ORDERED: DELTASONE DPS10 MG PO (13:29)
[2016-08-17] MEDS ORDERED: KLOR-CON M2020 ME1 PO (13:29)
[2016-08-17] MEDS ORDERED: ULTRAM DPS50 MG PO (13:30)
[2016-09-10] MEDS ORDERED: ASA CHILDREN'S81 MG PO (11:45)
[2016-09-10] MEDS ORDERED: CARDIZEM CD DP120 MG PO (11:45)
[2016-09-10] MEDS ORDERED: IMDUR DPS30 MG PO (11:46)
[2016-09-10] MEDS ORDERED: LIPITOR DPS10 MG PO (11:46)
[2016-09-10] MEDS ORDERED: CARVEDILOL3.125 MG PO (11:46)
[2016-09-10] MEDS ORDERED: ELIQUIS5 MG PO (11:46)
[2016-09-10] MEDS ORDERED: NEURONTIN DPS300 MG PO (11:46)
[2016-09-10] MEDS ORDERED: PEPCID DPS20 MG PO (11:46)
[2016-09-10] MEDS ORDERED: ORGAN-I NR200 MG PO (11:46)
[2016-09-10] MEDS ORDERED: SENOKOT S1 TAB PO (11:47)
[2016-09-10] MEDS ORDERED: PROSCAR DPS5 MG PO (11:47)
[2016-09-10] MEDS ORDERED: VIBRAMYCIN-DPS100 M2 PO (11:47)
[2016-09-10] MEDS ORDERED: REMERON DPS30 MG PO (11:47)
[2016-09-10] MEDS ORDERED: DUONEB DPS3 ML IH (11:48)
[2016-09-10] MEDS ORDERED: DULERA 200/58.8 GM IH (11:48)
[2016-09-10] MEDS ORDERED: OCEAN NASAL MIS45 ML IH (11:48)
[2016-11-15] MEDS ORDERED: DELTASONE DPS20 MG PO (13:03)
[2016-11-15] MEDS ORDERED: INSPRA25 MG PO (13:14)
[2016-11-15] MEDS ORDERED: LANOXIN125 MCG PO (13:14)
[2016-11-15] MEDS ORDERED: LEVAQUIN DPS750 MG PO (13:17)
[2016-11-15] MEDS ORDERED: LIPITOR DPS10 MG PO (13:18)
[2016-11-15] MEDS ORDERED: MIRALAX PACKET17 GM PO (13:18)
[2016-11-15] MEDS ORDERED: XARELTO20 MG PO (13:21)
[2016-11-15] MEDS ORDERED: MUCOMYST 20% IH (13:22)
[2016-11-15] MEDS ORDERED: NOVOLOG100 UNIT/2 SQ (13:23)
[2016-11-15] MEDS ORDERED: ACETAMINOPHEN325 MG PO (13:35)
[2016-11-15] MEDS ORDERED: PROVENTIL2.5 MG/3 M IH (13:36)
[2016-11-15] MEDS ORDERED: ACETYLCYST200 MG/1 M IH (13:36)
[2016-11-15] MEDS ORDERED: FOSAMAX70 MG PO (13:38)
[2016-11-15] MEDS ORDERED: BIOTENE PO (13:39)
[2016-11-15] MEDS ORDERED: DULCOLAX-DPS10 MG PR (13:40)
[2016-11-15] MEDS ORDERED: VITAMIN D-32000 UNI1 PO (13:41)
[2016-11-15] MEDS ORDERED: SYMBICORT160 MCG/6 IH (13:41)
[2016-11-15] MEDS ORDERED: CALTRATE-600 D600 MG PO (13:41)
[2016-11-15] MEDS ORDERED: FLEXERIL-DPS10 MG PO (13:42)
[2016-11-15] MEDS ORDERED: NITROSTAT0.4 MG SL (13:43)
[2016-11-15] MEDS ORDERED: OXY IR DPS5 MG PO (13:44)
[2016-11-15] MEDS ORDERED: ZAROXOLYN5 MG PO (13:44)
[2016-11-15] MEDS ORDERED: MIRALAX17 GM PO (13:45)
[2016-11-15] MEDS ORDERED: IMDUR DPS30 MG PO (13:46)
[2016-11-15] MEDS ORDERED: TORSEMIDE100 MG PO (13:49)
[2016-11-15] MEDS ORDERED: POTASSIUM CHLO20 MEQ PO (13:49)
[2016-11-15] MEDS ORDERED: SODIUM CHLORIDE45 ML NS (13:50)
== END 2016-06-19 23:50 | disposition home or self-care (01) ==
LOC: ER 20:12
DX: R07.9 Chest pain, unspecified (principal); I10 Essential (primary) hypertension; E11.9 Type 2 diabetes mellitus without complications; Z88.5 Allergy status to narcotic agent; Z88.8 Allergy status to other drugs, medicaments and biological substances; Z79.82 Long term (current) use of aspirin; Z79.4 Long term (current) use of insulin; Z79.899 Other long term (current) drug therapy

== ENCOUNTER 2016-07-25 18:12 | Observation (INO) | payer MEDICARE ==
[~2016-07-25] VITALS: Ht 172.7 cm; Wt 114.0 kg
--- NOTE | 2016-07-28 08:06 | HP ---
ADMIT: 07/25/2016 RM/LOC: 417 [facility] MR#: [id number] 2620 [facility] [address] [place] [phone] NICKY CASILLAS [address] [place] [address] History and Physical SEX: M AGE: 71 : 1945 DATE OF SERVICE: 07/25/2016 HISTORY OF PRESENT ILLNESS: The patient resides at the [facility] who presented here with severe sharp pain in his left chest in the emergency room and evaluated by Dr. Sun who recommended admission to acute care. It started yesterday afternoon. He points to a specific area in the left lateral chest. He has had a little more cough slightly increased phlegm production maybe a little more short of breath do not dramatically, so pain did not radiate elsewhere. His workup in the emergency room was benign. He had negative cardiac enzymes. EKG showed no acute changes. Chest x-ray, which I reviewed is somewhat hard to interpret because his large body habitus, possibility of early infection or even edema cannot be excluded, known history of congestive heart failure, but does not have a history that I can tell from the chart of coronary artery disease. At any rate, Dr. Sun recommended that he be admitted to rule out for acute coronary syndrome, and we agreed to accept on [facility] basis. PAST MEDICAL HISTORY: He was hospitalized here in April with acute COPD exacerbation and pneumonia. He had some atypical chest pain at that time as well. He was seen by [employer]. They talked about maybe doing a stress test at some point. Don does not recall that it has been done. Chronic problems include history of congestive heart failure, type unknown, severe COPD requiring oxygen and steroids, permanent atrial fibrillation, obstructive sleep apnea, morbid obesity, type 2 diabetes, which is controlled with p.r.n. insulin. He is not on any medication. Hyperlipidemia, hypertension, and osteoarthritis. Apparently, some type of CVA versus TIA in the past without residual osteoporosis, history of alcoholism. He has been alcohol free for several years. SOCIAL HISTORY: Habits, besides alcohol issue, he quit smoking about a year ago, but has residual effects. The patient is . Currently, unable to care for himself and is at the [facility]. He gets his regular general medical care through the [place] system. SURGICAL HISTORY: He has had bilateral hernia repairs, tonsillectomy, appendectomy. Notably, he has not had any coronary artery stents or open heart surgery. FAMILY HISTORY: Positive in first-degree relatives for coronary artery disease, myocardial infarction, and kidney failure. ALLERGIES: INTOLERANCE TO HYDROCODONE, SPIRONOLACTONE, AND BUPROPION. MEDICATIONS: He has a lengthy list includin. Acetylcysteine by nebulizer b.i.d. 2. DuoNeb q.i.d. 3. Alendronate once weekly. 4. Aspirin 81 mg daily. 5. Lipitor 10 mg at bedtime. ADMIT: 07/25/2016 RM/LOC: 417 [facility] MR#: [id number] [address] [place] [phone] [place] [address] History and Physical SEX: M AGE: 71 : 1945 6. Budesonide/formoterol two puffs b.i.d. 7. Calcium carbonate 500 b.i.d. 8. Vitamin D 2000 units daily. 9. Dabigatran 150 mg b.i.d. 10.Diclofenac topically q.i.d. 11.Diltiazem 180 mg daily. 12.DSS 200 mg daily. 13.Eplerenone 25 mg daily. 14.Famotidine 20 mg b.i.d. 15.Finasteride 5 mg daily. 16.Fluticasone two sprays daily. 17.Lasix 20 mg daily. 18.Gabapentin 300 mg daily. 19.Guaifenesin 400 mg t.i.d. 20.Mirtazapine 30 mg at bedtime. 21.Multivitamin one daily. 22.Prednisone 10 mg daily. P.r.n. medications include: 1. Tramadol. 2. Nystatin. 3. Nitroglycerin. 4. Miconazole powder. 5. Lorazepam. 6. Albuterol. REVIEW OF SYSTEMS: RESPIRATORY: I think he is raising a little more phlegm than normal not a dramatic amount, chronic cough, and chronic dyspnea. CV: As in the above history. Systemic not aware of any fever in the last day or two and his temp is normal since he has gotten to the floor. ENT: No acute ENT or ocular complaints. ABDOMEN/GENITOURINARY: No acute abdominal or genitourinary complaints. BONE/JOINT: He has some chronic arthritic issues unchanged. NEUROPSYCH: Unchanged. No acute complaints. PHYSICAL EXAMINATION: GENERAL: Ill-appearing 71-year-old male, appears older than his stated age. Morbidly obese. VITAL SIGNS: On admission, 98.2-089-66-102/71-96% sat on his usual oxygen flow of 2 L. This is not an increased requirement. ENT: Oral mucous membranes are moist. Hearing is intact. No nasal discharge. EYES: Pupils are equal and reactive. Sclerae are clear. NECK: No tenderness, no masses. HEART: Distant irregular rate controlled. LUNGS: Diffuse rhonchi. Occasional wheeze. He is not visibly dyspneic at rest, but is with activity. CHEST: He has local tenderness left lateral chest wall, tender to palpation superficially. I think this is the cause of his pain. He has no classic substernal symptoms, which would suggest unstable angina. ADMIT: 07/25/2016 RM/LOC: [address] [place] [address] MR#: [id number] [address] [address] VINNY NICKY [address] [place] [address] History and Physical SEX: M AGE: 71 : 1945 ABDOMEN: Obese male, nontender, no masses. Obesity limits exam. GENITALIA: Unremarkable to cursory exam. Rectal not performed. EXTREMITIES: Lower extremities, he does have some edema, which he says is chronic and unchanged. SKIN: No rashes. NEURO: Intact. PSYCH: Intact. IMPRESSION: 1. Atypical chest pain. 2. Severe chronic obstructive pulmonary disease requiring oxygen, and steroids possibly early exacerbation. 3. Stable chronic congestive heart failure. 4. Morbid obesity. 5. Permanent atrial fibrillation. 6. Obstructive sleep apnea. 7. Type 2 diabetes. PLAN: He will be now two sets of enzymes and two sets of EKGs. Uncomfortable that his current symptoms are not reflective of unstable angina. We will keep him another 24 hours allow him to increase his activity. I started him on some antibiotics thinking he might have an early bronchitis or COPD exacerbation. I have not bumped his steroids yet. We will monitor him closely and if no setbacks, release him tomorrow back to [facility]. Nicky Guan MD/ mack JOB #: [id number] CC: Nicky Guan, Attending Physician [facility] Physician, Family Physician
--- NOTE | 2016-08-06 08:35 | ER ---
ADMIT: 07/25/2016 RM/LOC: 417 [facility] MR#: [id number] [address] [address] NICKY CASILLAS [place] [address] [place] [address] Emergency Room Report SEX: M AGE: 71 : 1945 DATE: 07/25/2016 HISTORY OF PRESENT ILLNESS: A 71-year-old male who comes to the emergency department from the [facility] skilled care unit with complaints of left-sided chest pain, sudden onset, sharp, stabbing, worsened with deep inspiration or movement. It has been present for the past couple of hours. He said he has had similar episodes in the past. He complains of shortness of breath and chronic cough. PAST MEDICAL HISTORY: Hypertension, cardiac disease, CHF, COPD, obesity, hypertension, hyperlipidemia. PHYSICAL EXAMINATION: GENERAL: Reveals a 71-year-old gentleman in a mild amount of distress. LUNGS: Coarse rhonchi throughout. CARDIOVASCULAR: Irregular rate, irregular rhythm with no murmur, rub, or gallop. ABDOMEN: Obese, soft, nontender with positive bowel sounds. No masses, guarding, or rebound. EXTREMITIES: Reveal no edema or clubbing. LABORATORY AND X-RAY DATA: Chest x-ray shows poor air. BNP is only 292. His hemoglobin is 13.4, otherwise CBC is normal. Chemistry is 132, potassium 3.0, BUN 31, glucose 131, creatinine 1.5, BNP 292. Cardiac markers within normal limits. DIAGNOSIS: The patient is being admitted with chest pain rule-out. Jordi Sun MD/ mack JOB #: [id number] CC: Nicky Guan MD, Attending Physician [facility] Physician, Family Physician
[2016-08-17] MEDS ORDERED: ASPIRIN EC81 MG PO (13:11)
[2016-08-17] MEDS ORDERED: COLACE-DPS100 MG PO (13:11)
[2016-08-17] MEDS ORDERED: COREG DPS6.25 MG PO (13:11)
[2016-08-17] MEDS ORDERED: ELIQUIS5 MG PO (13:12)
[2016-08-17] MEDS ORDERED: LANOXIN DPS0.125 MG PO (13:12)
[2016-08-17] MEDS ORDERED: INSPRA50 MG PO (13:12)
[2016-08-17] MEDS ORDERED: IMDUR DPS30 MG PO (13:12)
[2016-08-17] MEDS ORDERED: DEMADEX DPS100 MG PO ×2 (13:12→13:29)
[2016-08-17] MEDS ORDERED: PEPCID DPS20 MG PO (13:13)
[2016-08-17] MEDS ORDERED: LIPITOR DPS10 MG PO (13:13)
[2016-08-17] MEDS ORDERED: NEURONTIN DPS300 MG PO (13:13)
[2016-08-17] MEDS ORDERED: PROSCAR DPS5 MG PO (13:13)
[2016-08-17] MEDS ORDERED: REMERON DPS30 MG PO (13:13)
[2016-08-17] MEDS ORDERED: ORGAN-I NR200 MG PO (13:13)
[2016-08-17] MEDS ORDERED: DULERA 200/58.8 GM IH (13:14)
[2016-08-17] MEDS ORDERED: TIAZAC180 MG PO (13:14)
[2016-08-17] MEDS ORDERED: DUONEB DPS3 ML IH (13:14)
[2016-08-17] MEDS ORDERED: ACETYLCYSTEINE 10% IH (13:15)
[2016-08-17] MEDS ORDERED: LEVAQUIN DPS750 MG PO (13:15)
[2016-08-17] MEDS ORDERED: ACETAMINOPHEN325 MG PO (13:17)
[2016-08-17] MEDS ORDERED: ALENDRONATE SOD70 MG PO (13:18)
[2016-08-17] MEDS ORDERED: ACCUNEB DP0.63 MG/3 IH (13:18)
[2016-08-17] MEDS ORDERED: CALCIUM CARBON500 MG PO (13:20)
[2016-08-17] MEDS ORDERED: BENZONATATE200 MG PO (13:20)
[2016-08-17] MEDS ORDERED: VITAMIN D-32000 UNI1 PO (13:21)
[2016-08-17] MEDS ORDERED: VOLTAREN 1% GE100 GM TP (13:22)
[2016-08-17] MEDS ORDERED: FLONASE 0.05% D16 GM NS (13:26)
[2016-08-17] MEDS ORDERED: ANTIVERT-DPS25 MG PO (13:27)
[2016-08-17] MEDS ORDERED: ATIVAN-DPS0.5 MG PO (13:27)
[2016-08-17] MEDS ORDERED: ZAROXOLYN2.5 MG PO (13:27)
[2016-08-17] MEDS ORDERED: MICONAZOLE100 GM TP (13:28)
[2016-08-17] MEDS ORDERED: NITROSTAT0.4 MG SL (13:29)
[2016-08-17] MEDS ORDERED: DELTASONE DPS10 MG PO (13:29)
[2016-08-17] MEDS ORDERED: KLOR-CON M2020 ME1 PO (13:29)
[2016-08-17] MEDS ORDERED: DAILY MULTIPLE1 EAC1 PO (13:29)
[2016-08-17] MEDS ORDERED: ULTRAM DPS50 MG PO (13:30)
[2016-09-10] MEDS ORDERED: CARDIZEM CD DP120 MG PO (11:45)
[2016-09-10] MEDS ORDERED: ASA CHILDREN'S81 MG PO (11:45)
[2016-09-10] MEDS ORDERED: CARVEDILOL3.125 MG PO (11:46)
[2016-09-10] MEDS ORDERED: ELIQUIS5 MG PO (11:46)
[2016-09-10] MEDS ORDERED: LIPITOR DPS10 MG PO (11:46)
[2016-09-10] MEDS ORDERED: PEPCID DPS20 MG PO (11:46)
[2016-09-10] MEDS ORDERED: NEURONTIN DPS300 MG PO (11:46)
[2016-09-10] MEDS ORDERED: ORGAN-I NR200 MG PO (11:46)
[2016-09-10] MEDS ORDERED: IMDUR DPS30 MG PO (11:46)
[2016-09-10] MEDS ORDERED: SENOKOT S1 TAB PO (11:47)
[2016-09-10] MEDS ORDERED: REMERON DPS30 MG PO (11:47)
[2016-09-10] MEDS ORDERED: VIBRAMYCIN-DPS100 M2 PO (11:47)
[2016-09-10] MEDS ORDERED: PROSCAR DPS5 MG PO (11:47)
[2016-09-10] MEDS ORDERED: DULERA 200/58.8 GM IH (11:48)
[2016-09-10] MEDS ORDERED: DUONEB DPS3 ML IH (11:48)
[2016-09-10] MEDS ORDERED: OCEAN NASAL MIS45 ML IH (11:48)
[2016-11-15] MEDS ORDERED: DELTASONE DPS20 MG PO (13:03)
[2016-11-15] MEDS ORDERED: LANOXIN125 MCG PO (13:14)
[2016-11-15] MEDS ORDERED: INSPRA25 MG PO (13:14)
[2016-11-15] MEDS ORDERED: LEVAQUIN DPS750 MG PO (13:17)
[2016-11-15] MEDS ORDERED: LIPITOR DPS10 MG PO (13:18)
[2016-11-15] MEDS ORDERED: MIRALAX PACKET17 GM PO (13:18)
[2016-11-15] MEDS ORDERED: XARELTO20 MG PO (13:21)
[2016-11-15] MEDS ORDERED: MUCOMYST 20% IH (13:22)
[2016-11-15] MEDS ORDERED: NOVOLOG100 UNIT/2 SQ (13:23)
[2016-11-15] MEDS ORDERED: ACETAMINOPHEN325 MG PO (13:35)
[2016-11-15] MEDS ORDERED: PROVENTIL2.5 MG/3 M IH (13:36)
[2016-11-15] MEDS ORDERED: ACETYLCYST200 MG/1 M IH (13:36)
[2016-11-15] MEDS ORDERED: FOSAMAX70 MG PO (13:38)
[2016-11-15] MEDS ORDERED: BIOTENE PO (13:39)
[2016-11-15] MEDS ORDERED: DULCOLAX-DPS10 MG PR (13:40)
[2016-11-15] MEDS ORDERED: SYMBICORT160 MCG/6 IH (13:41)
[2016-11-15] MEDS ORDERED: CALTRATE-600 D600 MG PO (13:41)
[2016-11-15] MEDS ORDERED: VITAMIN D-32000 UNI1 PO (13:41)
[2016-11-15] MEDS ORDERED: FLEXERIL-DPS10 MG PO (13:42)
[2016-11-15] MEDS ORDERED: NITROSTAT0.4 MG SL (13:43)
[2016-11-15] MEDS ORDERED: OXY IR DPS5 MG PO (13:44)
[2016-11-15] MEDS ORDERED: ZAROXOLYN5 MG PO (13:44)
[2016-11-15] MEDS ORDERED: MIRALAX17 GM PO (13:45)
[2016-11-15] MEDS ORDERED: IMDUR DPS30 MG PO (13:46)
[2016-11-15] MEDS ORDERED: TORSEMIDE100 MG PO (13:49)
[2016-11-15] MEDS ORDERED: POTASSIUM CHLO20 MEQ PO (13:49)
[2016-11-15] MEDS ORDERED: SODIUM CHLORIDE45 ML NS (13:50)
== END 2016-07-27 10:15 ==
LOC: ER 18:12 → 4PCU 19:25
PROVIDERS: ADMIT Family Medicine
DX: R07.89 Other chest pain (principal); J44.9 Chronic obstructive pulmonary disease, unspecified; E66.01 Morbid (severe) obesity due to excess calories; I48.2 Chronic atrial fibrillation; G47.33 Obstructive sleep apnea (adult) (pediatric); I11.0 Hypertensive heart disease with heart failure; I50.9 Heart failure, unspecified; E11.9 Type 2 diabetes mellitus without complications; E78.5 Hyperlipidemia, unspecified; M19.90 Unspecified osteoarthritis, unspecified site; Z79.891 Long term (current) use of opiate analgesic; Z79.899 Other long term (current) drug therapy; Z79.82 Long term (current) use of aspirin; Z88.6 Allergy status to analgesic agent; Z88.8 Allergy status to other drugs, medicaments and biological substances

== ENCOUNTER 2016-08-01 10:05 | Emergency (ER) | payer MEDICARE ==
[2016-08-17] MEDS ORDERED: ASPIRIN EC81 MG PO (13:11)
[2016-08-17] MEDS ORDERED: COREG DPS6.25 MG PO (13:11)
[2016-08-17] MEDS ORDERED: COLACE-DPS100 MG PO (13:11)
[2016-08-17] MEDS ORDERED: IMDUR DPS30 MG PO (13:12)
[2016-08-17] MEDS ORDERED: INSPRA50 MG PO (13:12)
[2016-08-17] MEDS ORDERED: DEMADEX DPS100 MG PO ×2 (13:12→13:29)
[2016-08-17] MEDS ORDERED: LANOXIN DPS0.125 MG PO (13:12)
[2016-08-17] MEDS ORDERED: ELIQUIS5 MG PO (13:12)
[2016-08-17] MEDS ORDERED: LIPITOR DPS10 MG PO (13:13)
[2016-08-17] MEDS ORDERED: PEPCID DPS20 MG PO (13:13)
[2016-08-17] MEDS ORDERED: REMERON DPS30 MG PO (13:13)
[2016-08-17] MEDS ORDERED: PROSCAR DPS5 MG PO (13:13)
[2016-08-17] MEDS ORDERED: NEURONTIN DPS300 MG PO (13:13)
[2016-08-17] MEDS ORDERED: ORGAN-I NR200 MG PO (13:13)
[2016-08-17] MEDS ORDERED: DULERA 200/58.8 GM IH (13:14)
[2016-08-17] MEDS ORDERED: TIAZAC180 MG PO (13:14)
[2016-08-17] MEDS ORDERED: DUONEB DPS3 ML IH (13:14)
[2016-08-17] MEDS ORDERED: ACETYLCYSTEINE 10% IH (13:15)
[2016-08-17] MEDS ORDERED: LEVAQUIN DPS750 MG PO (13:15)
[2016-08-17] MEDS ORDERED: ACETAMINOPHEN325 MG PO (13:17)
[2016-08-17] MEDS ORDERED: ACCUNEB DP0.63 MG/3 IH (13:18)
[2016-08-17] MEDS ORDERED: ALENDRONATE SOD70 MG PO (13:18)
[2016-08-17] MEDS ORDERED: CALCIUM CARBON500 MG PO (13:20)
[2016-08-17] MEDS ORDERED: BENZONATATE200 MG PO (13:20)
[2016-08-17] MEDS ORDERED: VITAMIN D-32000 UNI1 PO (13:21)
[2016-08-17] MEDS ORDERED: VOLTAREN 1% GE100 GM TP (13:22)
[2016-08-17] MEDS ORDERED: FLONASE 0.05% D16 GM NS (13:26)
[2016-08-17] MEDS ORDERED: ZAROXOLYN2.5 MG PO (13:27)
[2016-08-17] MEDS ORDERED: ANTIVERT-DPS25 MG PO (13:27)
[2016-08-17] MEDS ORDERED: ATIVAN-DPS0.5 MG PO (13:27)
[2016-08-17] MEDS ORDERED: MICONAZOLE100 GM TP (13:28)
[2016-08-17] MEDS ORDERED: NITROSTAT0.4 MG SL (13:29)
[2016-08-17] MEDS ORDERED: DELTASONE DPS10 MG PO (13:29)
[2016-08-17] MEDS ORDERED: KLOR-CON M2020 ME1 PO (13:29)
[2016-08-17] MEDS ORDERED: DAILY MULTIPLE1 EAC1 PO (13:29)
[2016-08-17] MEDS ORDERED: ULTRAM DPS50 MG PO (13:30)
--- NOTE | 2016-08-19 15:00 | ER ---
ADMIT: 08/01/2016 RM/LOC: ER [facility] MR#: [id number] 2620 [facility] [address] [place], [place] [address] NICKY CASILLAS [address] [place] [address] Emergency Room Report SEX: M AGE: 71 : 1945 DATE: 08/01/2016 ADDENDUM: This patient comes into the ER because he has had 2 episodes of shortness of breath today. He states he feels fine and all of a sudden, he gets short of breath and then it passes and he feels fine again. He does have a history of CHF and COPD. Denies any fevers and really does not have much of a cough. He feels like he wish he could cough to cough up some of what he thinks is making him having difficulty breathing. At this time, he denies any shortness of breath. On physical exam, he is alert. He does seem to have some wheezes. He was given a DuoNeb. I gave him Lasix and Decadron. When I went to re-evaluate him, he still felt fine, all of his symptoms were gone. I did consult with Dr. Madrid concerning treatment of the patient. His x-ray was negative for pneumonia. He was put on Zithromax and I wrote a prescription for prednisone with a diagnosis of COPD exacerbation. Please see my T sheet. JADEN Mccollum / Alvaro Madrid MD / mack JOB #: [id number] CC: Alvaro Madrid MD, Attending Physician [facility] Physician, Family Physician
[2016-09-10] MEDS ORDERED: CARDIZEM CD DP120 MG PO (11:45)
[2016-09-10] MEDS ORDERED: ASA CHILDREN'S81 MG PO (11:45)
[2016-09-10] MEDS ORDERED: ELIQUIS5 MG PO (11:46)
[2016-09-10] MEDS ORDERED: IMDUR DPS30 MG PO (11:46)
[2016-09-10] MEDS ORDERED: NEURONTIN DPS300 MG PO (11:46)
[2016-09-10] MEDS ORDERED: LIPITOR DPS10 MG PO (11:46)
[2016-09-10] MEDS ORDERED: CARVEDILOL3.125 MG PO (11:46)
[2016-09-10] MEDS ORDERED: ORGAN-I NR200 MG PO (11:46)
[2016-09-10] MEDS ORDERED: PEPCID DPS20 MG PO (11:46)
[2016-09-10] MEDS ORDERED: VIBRAMYCIN-DPS100 M2 PO (11:47)
[2016-09-10] MEDS ORDERED: SENOKOT S1 TAB PO (11:47)
[2016-09-10] MEDS ORDERED: PROSCAR DPS5 MG PO (11:47)
[2016-09-10] MEDS ORDERED: REMERON DPS30 MG PO (11:47)
[2016-09-10] MEDS ORDERED: DUONEB DPS3 ML IH (11:48)
[2016-09-10] MEDS ORDERED: DULERA 200/58.8 GM IH (11:48)
[2016-09-10] MEDS ORDERED: OCEAN NASAL MIS45 ML IH (11:48)
[2016-11-15] MEDS ORDERED: DELTASONE DPS20 MG PO (13:03)
[2016-11-15] MEDS ORDERED: LANOXIN125 MCG PO (13:14)
[2016-11-15] MEDS ORDERED: INSPRA25 MG PO (13:14)
[2016-11-15] MEDS ORDERED: LEVAQUIN DPS750 MG PO (13:17)
[2016-11-15] MEDS ORDERED: LIPITOR DPS10 MG PO (13:18)
[2016-11-15] MEDS ORDERED: MIRALAX PACKET17 GM PO (13:18)
[2016-11-15] MEDS ORDERED: XARELTO20 MG PO (13:21)
[2016-11-15] MEDS ORDERED: MUCOMYST 20% IH (13:22)
[2016-11-15] MEDS ORDERED: NOVOLOG100 UNIT/2 SQ (13:23)
[2016-11-15] MEDS ORDERED: ACETAMINOPHEN325 MG PO (13:35)
[2016-11-15] MEDS ORDERED: PROVENTIL2.5 MG/3 M IH (13:36)
[2016-11-15] MEDS ORDERED: ACETYLCYST200 MG/1 M IH (13:36)
[2016-11-15] MEDS ORDERED: FOSAMAX70 MG PO (13:38)
[2016-11-15] MEDS ORDERED: BIOTENE PO (13:39)
[2016-11-15] MEDS ORDERED: DULCOLAX-DPS10 MG PR (13:40)
[2016-11-15] MEDS ORDERED: VITAMIN D-32000 UNI1 PO (13:41)
[2016-11-15] MEDS ORDERED: CALTRATE-600 D600 MG PO (13:41)
[2016-11-15] MEDS ORDERED: SYMBICORT160 MCG/6 IH (13:41)
[2016-11-15] MEDS ORDERED: FLEXERIL-DPS10 MG PO (13:42)
[2016-11-15] MEDS ORDERED: NITROSTAT0.4 MG SL (13:43)
[2016-11-15] MEDS ORDERED: ZAROXOLYN5 MG PO (13:44)
[2016-11-15] MEDS ORDERED: OXY IR DPS5 MG PO (13:44)
[2016-11-15] MEDS ORDERED: MIRALAX17 GM PO (13:45)
[2016-11-15] MEDS ORDERED: IMDUR DPS30 MG PO (13:46)
[2016-11-15] MEDS ORDERED: POTASSIUM CHLO20 MEQ PO (13:49)
[2016-11-15] MEDS ORDERED: TORSEMIDE100 MG PO (13:49)
[2016-11-15] MEDS ORDERED: SODIUM CHLORIDE45 ML NS (13:50)
== END 2016-08-01 11:35 | disposition home or self-care (01) ==
LOC: ER 10:05
DX: J44.1 Chronic obstructive pulmonary disease with (acute) exacerbation (principal); I11.0 Hypertensive heart disease with heart failure; I50.9 Heart failure, unspecified; E11.9 Type 2 diabetes mellitus without complications; E78.5 Hyperlipidemia, unspecified; Z86.73 Personal history of transient ischemic attack (TIA), and cerebral infarction without residual deficits; Z88.8 Allergy status to other drugs, medicaments and biological substances; Z79.899 Other long term (current) drug therapy; Z79.82 Long term (current) use of aspirin; Z90.49 Acquired absence of other specified parts of digestive tract

== ENCOUNTER 2016-08-15 06:47 | Inpatient (IN) | payer MEDICARE ==
[~2016-08-15] VITALS: Ht 172.7 cm; Wt 111.0 kg
--- NOTE | ~2016-08-15 | HP ---
ADMIT: 08/15/2016 RM/LOC: 425 [facility] MR#: [id number] 2620 [facility] [address] [place] [phone] NICKY CASILLAS [address] [place] [address] History and Physical SEX: M AGE: 71 : 1945 DATE OF SERVICE: CHIEF COMPLAINT: Shortness of breath. HISTORY OF PRESENT ILLNESS: The patient is a 71-year-old gentleman who presents to the emergency room after transfer from the [facility] where he normally resides. He has been living there since April. Abruptly over the last day or two, he has been having increasing shortness of breath. Really just started this morning more than anything. Looking back, it looks like he was started on some antibiotics and prednisone on the . He does not really recall this. He states yesterday he felt great. Today he had increasing shortness of breath, cough, and sputum production. No fevers. No chills. No chest pain. Some abdominal pain when he coughs. No nausea. No vomiting. He had otherwise been eating and drinking well. Prior to April, been living up in [place] and had been getting around okay on his own. Just recently moved in the [facility]. He was hospitalized looks like here in the emergency room on July 26, 2016 for some chest pain at that time. PAST MEDICAL HISTORY: 1. Atrial fibrillation. 2. Chronic congestive heart failure. 3. Severe COPD. 4. Obstructive sleep apnea. 5. Type 2 diabetes. 6. Morbid obesity. 7. Depression. 8. GERD. SOCIAL HISTORY: He is , has 4 children. Lives over at the [facility]. Previously got his primary cares at the [place] system. Quit smoking a year ago. Quit drinking alcohol in the late 80s. He is retired from body work. PAST SURGICAL HISTORY: He has had bilateral hernia repair, tonsillectomy, appendectomy, he has had a left heart catheterization but without any intervention he states. FAMILY HISTORY: Significant for brother having similar pulmonary issues with him. Sister with breast cancer. ALLERGIES: SPIRONOLACTONE AND HYDROCODONE. MEDICATIONS: Please see list for full details. It includes: 1. Aspirin. 2. Acetaminophen. 3. Mucomyst. 4. Albuterol. 5. Alendronate. 6. Apixaban. 7. Atorvastatin. ADMIT: 08/15/2016 RM/LOC: 425 [facility] MR#: [id number] [address] [address] NICKY CASILLAS [address] [place] [address] History and Physical SEX: M AGE: 71 : 1945 8. Benzonatate. 9. Imdur. 10.Lorazepam. 11.Meclizine. 12.Metolazone p.r.n. 13.Mirtazapine. 14.Potassium chloride. 15.Digoxin. 16.Diltiazem. 17.Eplerenone. 18.Famotidine. 19.Finasteride. 20.Fluticasone. 21.Gabapentin. 22.Guaifenesin. 23.Digoxin. 24.Cefuroxime. 25.Carvedilol. 26.Budesonide. 27.Formoterol. REVIEW OF SYSTEMS: As per HPI. Otherwise, completely reviewed and negative. PHYSICAL EXAMINATION: VITAL SIGNS: Blood pressure 109/67, pulse 106, respiratory rate 18, O2 saturation 93% on 6 L currently. GENERAL: He is alert and oriented x3. No acute distress. Resting in bed of the ER rather comfortably. HEENT: Normocephalic, atraumatic. Pupils are equal bilaterally. No icterus. Dry mucous membranes. NECK: No lymphadenopathy. Soft, supple. Trachea midline. LUNGS: He has coarse expiratory rhonchi. Worse on the left side than the right. Symmetric thoracic excursion. Slightly barrel-chested. HEART: Irregularly irregular. No murmurs, rubs. Distant. ABDOMEN: Soft, nontender, and nondistended. Bowel sounds present. Some pitting edema. EXTREMITIES: No cyanosis, clubbing. He has 2+ pitting edema present bilaterally, lower extremities. MUSCULOSKELETAL: 5/5 strength in all 4 extremities. Re-positions himself in bed reasonably well. NEUROLOGICAL: No focal deficits noted. Cranial nerves II through XII grossly intact. SKIN: He has dry skin, but no rashes. No large ecchymoses. LABORATORY AND X-RAY DATA: His EKG which showed no acute findings other than his underlying atrial fibrillation. Creatinine is 1.4, mag is 2.2. INR is 1. His troponin is negative. Hemoglobin is 13.6, white count 10.7, and platelets 210. Potassium 3.2, carbon dioxide 39, lactic acid 3.0, procalcitonin is less than 0.05. X-ray reviewed. He has some kind of congestion, perihilar on his ADMIT: 08/15/2016 RM/LOC: 425 [facility] MR#: [id number] [address] [place] [phone] NICKY CASILLAS [address] [place] [address] History and Physical SEX: M AGE: 71 : 1945 left side more than his right. Cardiomegaly. Portable film. ASSESSMENT/PLAN: 1. Acute chronic obstructive pulmonary disease exacerbation. 2. History of congestive heart failure without acute exacerbation. 3. Atrial fibrillation. 4. Possible early pneumonia. At this point in time, we will treat with antibiotics, steroids, and bronchodilators for his acute COPD. His presentation seems most consistent with acute COPD. We will monitor his fluid status closely. I do not think he is necessarily septic at this time. Lactic acid elevated likely secondary to his bronchodilator therapy. We will see how he does with breathing treatments and continued steroids. Epi Franklin MD/ mack JOB #: [id number] CC: Epi Franklin, Attending Physician Epi Franklin, Family Physician
--- NOTE | 2016-08-16 14:30 | NUR ---
Patient triggered as high ED user. Pt is currently residing at [facility].
--- NOTE | 2016-08-17 09:36 | ER ---
ADMIT: 08/15/2016 RM/LOC: ER [facility] MR#: [id number] [address] [facility] [address] [place], [place] [address] NICKY CASILLAS [address] [place] [address] Emergency Room Report SEX: M AGE: 71 : 1945 DATE: 08/15/2016 TIME: 0647 hours. Please refer to my T-sheet for complete H and P. HISTORY OF PRESENT ILLNESS: Briefly, the patient is a 71-year-old, who comes in short of breath and cough. He is over at the [facility], and he has a long history of COPD, pneumonia, diabetes, AFib, depression. He is anticoagulated. He got acutely more short of breath this morning, came in on nebulizer. PHYSICAL EXAMINATION: VITAL SIGNS: His blood pressure is 121/92, pulse 103, respirations 18, temperature 97.6, saturating 100% on a non-rebreather. GENERAL: He is anxious. HEENT: Grossly normal. LUNGS: With expiratory wheeze. HEART: Irregularly irregular, slightly tachycardic. ABDOMEN: Soft. EXTREMITIES: 2+ edema. EMERGENCY DEPARTMENT COURSE: We gave him DuoNeb x2, Decadron 10 mg IM because we had trouble getting an IV at first. We did the whole sepsis pathway, an IV was then established without much difficulty. His chest x-ray revealed a right lower lobe pneumonia. CBC normal except for white count 10.7, hemoglobin 13.6. Chemistries normal except sodium 130, potassium 3.2, CO2 of 39, BUN 27, glucose 120, creatinine 1.4. Cardiac enzymes, negative. Coags normal. Lactate was 3. Blood cultures x2 were sent. Procalcitonin was normal. EKG was AFib, rate 99, nonspecific changes. We gave him Decadron again, started the antibiotics in the Emergency Department. I talked to him. [facility], wanted to stay here. I talked to Dr. Franklin, ADMIT: 08/15/2016 RM/LOC: [facility] MR#: [id number] [address] [address] NICKY CASILLAS [address] [place] [address] Emergency Room Report SEX: M AGE: 71 : 1945 will admit to the hospital. ASSESSMENT: 1. Right lower lobe pneumonia. 2. Chronic obstructive pulmonary disease with exacerbation. 3. Early sepsis. PLAN: Admit to the hospital under the care of Dr. Franklin. Lex Cook MD/ modl JOB #: [id number] CC: Malachi Greer MD, Attending Physician UNKNOWN, Family Physician Epi Franklin MD . [facility]
[2016-08-17] MEDS ORDERED: ASPIRIN EC81 MG PO (13:11)
[2016-08-17] MEDS ORDERED: COREG DPS6.25 MG PO (13:11)
[2016-08-17] MEDS ORDERED: COLACE-DPS100 MG PO (13:11)
[2016-08-17] MEDS ORDERED: ELIQUIS5 MG PO (13:12)
[2016-08-17] MEDS ORDERED: LANOXIN DPS0.125 MG PO (13:12)
[2016-08-17] MEDS ORDERED: INSPRA50 MG PO (13:12)
[2016-08-17] MEDS ORDERED: DEMADEX DPS100 MG PO ×2 (13:12→13:29)
[2016-08-17] MEDS ORDERED: IMDUR DPS30 MG PO (13:12)
[2016-08-17] MEDS ORDERED: NEURONTIN DPS300 MG PO (13:13)
[2016-08-17] MEDS ORDERED: REMERON DPS30 MG PO (13:13)
[2016-08-17] MEDS ORDERED: LIPITOR DPS10 MG PO (13:13)
[2016-08-17] MEDS ORDERED: PROSCAR DPS5 MG PO (13:13)
[2016-08-17] MEDS ORDERED: ORGAN-I NR200 MG PO (13:13)
[2016-08-17] MEDS ORDERED: PEPCID DPS20 MG PO (13:13)
[2016-08-17] MEDS ORDERED: DULERA 200/58.8 GM IH (13:14)
[2016-08-17] MEDS ORDERED: TIAZAC180 MG PO (13:14)
[2016-08-17] MEDS ORDERED: DUONEB DPS3 ML IH (13:14)
[2016-08-17] MEDS ORDERED: ACETYLCYSTEINE 10% IH (13:15)
[2016-08-17] MEDS ORDERED: LEVAQUIN DPS750 MG PO (13:15)
[2016-08-17] MEDS ORDERED: ACETAMINOPHEN325 MG PO (13:17)
[2016-08-17] MEDS ORDERED: ACCUNEB DP0.63 MG/3 IH (13:18)
[2016-08-17] MEDS ORDERED: ALENDRONATE SOD70 MG PO (13:18)
[2016-08-17] MEDS ORDERED: BENZONATATE200 MG PO (13:20)
[2016-08-17] MEDS ORDERED: CALCIUM CARBON500 MG PO (13:20)
[2016-08-17] MEDS ORDERED: VITAMIN D-32000 UNI1 PO (13:21)
[2016-08-17] MEDS ORDERED: VOLTAREN 1% GE100 GM TP (13:22)
[2016-08-17] MEDS ORDERED: FLONASE 0.05% D16 GM NS (13:26)
[2016-08-17] MEDS ORDERED: ZAROXOLYN2.5 MG PO (13:27)
[2016-08-17] MEDS ORDERED: ANTIVERT-DPS25 MG PO (13:27)
[2016-08-17] MEDS ORDERED: ATIVAN-DPS0.5 MG PO (13:27)
[2016-08-17] MEDS ORDERED: MICONAZOLE100 GM TP (13:28)
[2016-08-17] MEDS ORDERED: KLOR-CON M2020 ME1 PO (13:29)
[2016-08-17] MEDS ORDERED: DAILY MULTIPLE1 EAC1 PO (13:29)
[2016-08-17] MEDS ORDERED: DELTASONE DPS10 MG PO (13:29)
[2016-08-17] MEDS ORDERED: NITROSTAT0.4 MG SL (13:29)
[2016-08-17] MEDS ORDERED: ULTRAM DPS50 MG PO (13:30)
--- NOTE | 2016-08-17 15:50 | DS ---
ADMIT: 08/15/2016 RM/LOC: 425 [facility] MR#: [id number] 2620 [facility] [address] [place], [place] [address] NICKY CASILLAS [address] [place] [address] Discharge Summary SEX: M AGE: 71 : 1945 ADMISSION DATE: 08/15/2016 DISCHARGE DATE: 08/16/2016 CONSULTATIONS: None. PROCEDURES: None. FINAL DIAGNOSES: 1. Acute chronic obstructive pulmonary disease exacerbation with hypoxic respiratory failure. 2. History of chronic diastolic heart failure. 3. Diabetes. 4. Atrial fibrillation on anticoagulation. REASON FOR ADMISSION: The patient is a 71-year-old gentleman who was up at the [facility], had acutely worsened shortness of breath. Brought to the emergency room. [place] warranted admission. HOSPITAL COURSE: The patient was admitted. Placed on IV steroids, antibiotics. A CT of his chest did not show infiltrate. He responded much quicker than expected to breathing treatments, steroids, antibiotics, and felt safe and stable back to [facility] nursing unit on day of discharge. He was actually on less oxygen than he normally is at baseline, baseline being 3 L, and he was down to 2 L. DISCHARGE INSTRUCTIONS: He will discharge back up to the [facility] nursing unit. For medications, please see list which I reviewed. He will notably be on his home medications as well as: Levaquin 750 mg p.o. daily for 4 days. As well as prednisone 40 mg for 4 days, 30 mg for 4 days, 20 mg for 4 days, 10 mg for 4 days. He will follow up there with a [facility] provider. Epi Franklin MD/ harmony JOB #: [id number] CC: Epi Franklin MD, Attending Physician Epi Franklin MD, Family Physician . [facility]
[2016-09-10] MEDS ORDERED: CARDIZEM CD DP120 MG PO (11:45)
[2016-09-10] MEDS ORDERED: ASA CHILDREN'S81 MG PO (11:45)
[2016-09-10] MEDS ORDERED: ELIQUIS5 MG PO (11:46)
[2016-09-10] MEDS ORDERED: IMDUR DPS30 MG PO (11:46)
[2016-09-10] MEDS ORDERED: ORGAN-I NR200 MG PO (11:46)
[2016-09-10] MEDS ORDERED: PEPCID DPS20 MG PO (11:46)
[2016-09-10] MEDS ORDERED: CARVEDILOL3.125 MG PO (11:46)
[2016-09-10] MEDS ORDERED: LIPITOR DPS10 MG PO (11:46)
[2016-09-10] MEDS ORDERED: NEURONTIN DPS300 MG PO (11:46)
[2016-09-10] MEDS ORDERED: VIBRAMYCIN-DPS100 M2 PO (11:47)
[2016-09-10] MEDS ORDERED: SENOKOT S1 TAB PO (11:47)
[2016-09-10] MEDS ORDERED: REMERON DPS30 MG PO (11:47)
[2016-09-10] MEDS ORDERED: PROSCAR DPS5 MG PO (11:47)
[2016-09-10] MEDS ORDERED: DULERA 200/58.8 GM IH (11:48)
[2016-09-10] MEDS ORDERED: DUONEB DPS3 ML IH (11:48)
[2016-09-10] MEDS ORDERED: OCEAN NASAL MIS45 ML IH (11:48)
[2016-11-15] MEDS ORDERED: DELTASONE DPS20 MG PO (13:03)
[2016-11-15] MEDS ORDERED: INSPRA25 MG PO (13:14)
[2016-11-15] MEDS ORDERED: LANOXIN125 MCG PO (13:14)
[2016-11-15] MEDS ORDERED: LEVAQUIN DPS750 MG PO (13:17)
[2016-11-15] MEDS ORDERED: MIRALAX PACKET17 GM PO (13:18)
[2016-11-15] MEDS ORDERED: LIPITOR DPS10 MG PO (13:18)
[2016-11-15] MEDS ORDERED: XARELTO20 MG PO (13:21)
[2016-11-15] MEDS ORDERED: MUCOMYST 20% IH (13:22)
[2016-11-15] MEDS ORDERED: NOVOLOG100 UNIT/2 SQ (13:23)
[2016-11-15] MEDS ORDERED: ACETAMINOPHEN325 MG PO (13:35)
[2016-11-15] MEDS ORDERED: PROVENTIL2.5 MG/3 M IH (13:36)
[2016-11-15] MEDS ORDERED: ACETYLCYST200 MG/1 M IH (13:36)
[2016-11-15] MEDS ORDERED: FOSAMAX70 MG PO (13:38)
[2016-11-15] MEDS ORDERED: BIOTENE PO (13:39)
[2016-11-15] MEDS ORDERED: DULCOLAX-DPS10 MG PR (13:40)
[2016-11-15] MEDS ORDERED: VITAMIN D-32000 UNI1 PO (13:41)
[2016-11-15] MEDS ORDERED: CALTRATE-600 D600 MG PO (13:41)
[2016-11-15] MEDS ORDERED: SYMBICORT160 MCG/6 IH (13:41)
[2016-11-15] MEDS ORDERED: FLEXERIL-DPS10 MG PO (13:42)
[2016-11-15] MEDS ORDERED: NITROSTAT0.4 MG SL (13:43)
[2016-11-15] MEDS ORDERED: OXY IR DPS5 MG PO (13:44)
[2016-11-15] MEDS ORDERED: ZAROXOLYN5 MG PO (13:44)
[2016-11-15] MEDS ORDERED: MIRALAX17 GM PO (13:45)
[2016-11-15] MEDS ORDERED: IMDUR DPS30 MG PO (13:46)
[2016-11-15] MEDS ORDERED: TORSEMIDE100 MG PO (13:49)
[2016-11-15] MEDS ORDERED: POTASSIUM CHLO20 MEQ PO (13:49)
[2016-11-15] MEDS ORDERED: SODIUM CHLORIDE45 ML NS (13:50)
== END 2016-08-16 11:41 | DRG 190 ==
LOC: ER 06:47 → 4PCU 08:35
PROVIDERS: ADMIT Internal Medicine
DX: J44.1 Chronic obstructive pulmonary disease with (acute) exacerbation (principal); J96.91 Respiratory failure, unspecified with hypoxia; I50.32 Chronic diastolic (congestive) heart failure; E11.9 Type 2 diabetes mellitus without complications; I48.91 Unspecified atrial fibrillation; E66.01 Morbid (severe) obesity due to excess calories; E32.9 Disease of thymus, unspecified; G47.33 Obstructive sleep apnea (adult) (pediatric); F32.9 Major depressive disorder, single episode, unspecified; K21.9 Gastro-esophageal reflux disease without esophagitis; Z87.891 Personal history of nicotine dependence; Z79.01 Long term (current) use of anticoagulants; Z79.82 Long term (current) use of aspirin; Z68.35 Body mass index [BMI] 35.0-35.9, adult

== ENCOUNTER 2016-09-02 08:00 | Emergency (ER) | payer MEDICARE ==
[~2016-09-02 08:00] MED LIST: ACCUNEB DP0.63 MG/3 IH; ACETAMINOPHEN325 MG PO; ACETYLCYSTEINE 10% IH; ALENDRONATE SOD70 MG PO; ANTIVERT-DPS25 MG PO; ASPIRIN EC81 MG PO; ATIVAN-DPS0.5 MG PO; BENZONATATE200 MG PO; CALCIUM CARBON500 MG PO; COLACE-DPS100 MG PO; COREG DPS6.25 MG PO; DAILY MULTIPLE1 EAC1 PO; DELTASONE DPS10 MG PO; DEMADEX DPS100 MG PO; DULERA 200/58.8 GM IH; DUONEB DPS3 ML IH; ELIQUIS5 MG PO; FLONASE 0.05% D16 GM NS; IMDUR DPS30 MG PO; INSPRA50 MG PO; KLOR-CON M2020 ME1 PO; LANOXIN DPS0.125 MG PO; LEVAQUIN DPS750 MG PO; LIPITOR DPS10 MG PO; MICONAZOLE100 GM TP; NEURONTIN DPS300 MG PO; NITROSTAT0.4 MG SL; ORGAN-I NR200 MG PO; PEPCID DPS20 MG PO; PROSCAR DPS5 MG PO; REMERON DPS30 MG PO; TIAZAC180 MG PO; ULTRAM DPS50 MG PO; VITAMIN D-32000 UNI1 PO; VOLTAREN 1% GE100 GM TP; ZAROXOLYN2.5 MG PO
--- NOTE | 2016-09-07 07:15 | ER ---
ADMIT: 09/02/2016 RM/LOC: ER [facility] MR#: [id number] 2620 [facility] [address] [place] [phone] NICKY CASILLAS [address] [place] [address] Emergency Room Report SEX: M AGE: 71 : 1945 DATE: 09/02/2016 The patient was brought in by [facility] with a near syncopal episode about an hour ago at the [facility]. He has had some cough, but he said after he had a blood draw this morning then he felt very weak. He states he did not have his breakfast this morning. His vitals are within normal limits. He does wear oxygen at 3 L and he is at 95%. He has a long history of CHF, AFib, COPD, chronic O2 at 3 L, diabetes, and hypertension . ALLERGIES: HE IS ALLERGIC TO MORPHINE, NORCO, SPIRONOLACTONE, AND BUPROPION. MEDICATIONS: List is quite extensive. He is on anticoagulant, an aspirin. PHYSICAL EXAMINATION: GENERAL: He is very pleasant obese male, alert and oriented. EXTREMITIES: He does have pedal edema on both legs, but the right leg has an anterior abrasion that happened yesterday. He stated he went to x-rays and was told to stand up but he went down and scraped his leg as he almost had a near syncopal episode. Physical examination is otherwise negative. X-ray shows atelectases, no pneumonia. Head CT was totally negative. CLINICAL IMPRESSION: Chronic congestive heart failure, on O2, syncopal vasovagal. Labs from the [facility] were all reviewed. X-ray was done as that did not include in the paperwork that we received from the [facility]. The patient was notified that he was going to be sent back to the [facility]. He jokingly said, "I feel like a yo-yo." The patient will return via transportation, discharge instructions included. JADEN Howell / Ever Dolan MD / mack JOB #: [id number] CC: Ever Dolan MD, Attending Physician [facility] Physician, Family Physician
[2016-09-10] MEDS ORDERED: CARDIZEM CD DP120 MG PO (11:45)
[2016-09-10] MEDS ORDERED: ASA CHILDREN'S81 MG PO (11:45)
[2016-09-10] MEDS ORDERED: NEURONTIN DPS300 MG PO (11:46)
[2016-09-10] MEDS ORDERED: IMDUR DPS30 MG PO (11:46)
[2016-09-10] MEDS ORDERED: LIPITOR DPS10 MG PO (11:46)
[2016-09-10] MEDS ORDERED: ELIQUIS5 MG PO (11:46)
[2016-09-10] MEDS ORDERED: ORGAN-I NR200 MG PO (11:46)
[2016-09-10] MEDS ORDERED: PEPCID DPS20 MG PO (11:46)
[2016-09-10] MEDS ORDERED: CARVEDILOL3.125 MG PO (11:46)
[2016-09-10] MEDS ORDERED: PROSCAR DPS5 MG PO (11:47)
[2016-09-10] MEDS ORDERED: VIBRAMYCIN-DPS100 M2 PO (11:47)
[2016-09-10] MEDS ORDERED: SENOKOT S1 TAB PO (11:47)
[2016-09-10] MEDS ORDERED: REMERON DPS30 MG PO (11:47)
[2016-09-10] MEDS ORDERED: DULERA 200/58.8 GM IH (11:48)
[2016-09-10] MEDS ORDERED: DUONEB DPS3 ML IH (11:48)
[2016-09-10] MEDS ORDERED: OCEAN NASAL MIS45 ML IH (11:48)
[2016-11-15] MEDS ORDERED: DELTASONE DPS20 MG PO (13:03)
[2016-11-15] MEDS ORDERED: LANOXIN125 MCG PO (13:14)
[2016-11-15] MEDS ORDERED: INSPRA25 MG PO (13:14)
[2016-11-15] MEDS ORDERED: LEVAQUIN DPS750 MG PO (13:17)
[2016-11-15] MEDS ORDERED: LIPITOR DPS10 MG PO (13:18)
[2016-11-15] MEDS ORDERED: MIRALAX PACKET17 GM PO (13:18)
[2016-11-15] MEDS ORDERED: XARELTO20 MG PO (13:21)
[2016-11-15] MEDS ORDERED: MUCOMYST 20% IH (13:22)
[2016-11-15] MEDS ORDERED: NOVOLOG100 UNIT/2 SQ (13:23)
[2016-11-15] MEDS ORDERED: ACETAMINOPHEN325 MG PO (13:35)
[2016-11-15] MEDS ORDERED: PROVENTIL2.5 MG/3 M IH (13:36)
[2016-11-15] MEDS ORDERED: ACETYLCYST200 MG/1 M IH (13:36)
[2016-11-15] MEDS ORDERED: FOSAMAX70 MG PO (13:38)
[2016-11-15] MEDS ORDERED: BIOTENE PO (13:39)
[2016-11-15] MEDS ORDERED: DULCOLAX-DPS10 MG PR (13:40)
[2016-11-15] MEDS ORDERED: VITAMIN D-32000 UNI1 PO (13:41)
[2016-11-15] MEDS ORDERED: CALTRATE-600 D600 MG PO (13:41)
[2016-11-15] MEDS ORDERED: SYMBICORT160 MCG/6 IH (13:41)
[2016-11-15] MEDS ORDERED: FLEXERIL-DPS10 MG PO (13:42)
[2016-11-15] MEDS ORDERED: NITROSTAT0.4 MG SL (13:43)
[2016-11-15] MEDS ORDERED: OXY IR DPS5 MG PO (13:44)
[2016-11-15] MEDS ORDERED: ZAROXOLYN5 MG PO (13:44)
[2016-11-15] MEDS ORDERED: MIRALAX17 GM PO (13:45)
[2016-11-15] MEDS ORDERED: IMDUR DPS30 MG PO (13:46)
[2016-11-15] MEDS ORDERED: POTASSIUM CHLO20 MEQ PO (13:49)
[2016-11-15] MEDS ORDERED: TORSEMIDE100 MG PO (13:49)
[2016-11-15] MEDS ORDERED: SODIUM CHLORIDE45 ML NS (13:50)
== END 2016-09-02 12:20 | disposition home or self-care (01) ==
LOC: ER 08:00
DX: R55 Syncope and collapse (principal); I11.0 Hypertensive heart disease with heart failure; I50.9 Heart failure, unspecified; S80.811A Abrasion, right lower leg, initial encounter; E11.9 Type 2 diabetes mellitus without complications; I25.10 Atherosclerotic heart disease of native coronary artery without angina pectoris; F32.9 Major depressive disorder, single episode, unspecified; E66.01 Morbid (severe) obesity due to excess calories; I48.91 Unspecified atrial fibrillation; Z79.82 Long term (current) use of aspirin; Z88.5 Allergy status to narcotic agent; Z88.8 Allergy status to other drugs, medicaments and biological substances; Z79.01 Long term (current) use of anticoagulants; X58.XXXA Exposure to other specified factors, initial encounter; Y92.009 Unspecified place in unspecified non-institutional (private) residence as the place of occurrence of the external cause

== ENCOUNTER 2016-09-03 18:32 | Inpatient (IN) | payer MEDICARE ==
[~2016-09-03] VITALS: Ht 172.7 cm; Wt 106.5 kg
--- NOTE | ~2016-09-03 | HP ---
ADMIT: 09/03/2016 RM/LOC: 411 [facility] MR#: [id number] [facility]#: [id number] [address] [facility] [address] [place], [place] [address] NICKY KULKARNI [address] [place] [address] History and Physical SEX: M AGE: 71 : 1945 DATE OF SERVICE: CHIEF COMPLAINT: Hallucinations, confusion, and increased shortness of breath. HISTORY OF PRESENT ILLNESS: Mr. Kulkarni is a very pleasant 71-year-old male, who has been at the [facility] since April. He actually was admitted to the hospital at that time with some acute exacerbation of COPD. He reports that he has been rehabbing there. He has a past medical history significant for atrial fibrillation, COPD, congestive heart failure, obstructive sleep apnea, type 2 diabetes, and morbid obesity. He apparently had come to the ER twice here. He had come first time to the ER on 09/02. At that time, his complaints had been near syncope although he reports he just had some confusion and hallucinations. He reports that he hears voices and thought that there were people telling him he needed to get out of his room. He knew that they were not real, but reports that he has a very strong impulse. He was brought in and had a CT of his head, which looked fine and was actually sent back. He was brought back today because the symptoms seem to be worse and may be had more confusion. On evaluation, it was noted that his sodium was 121 and he felt warranted admission for further evaluation and treatment. He reports that otherwise, there has really not been anything new or different with him. He has not had any new shortness of breath although he is always somewhat short of breath. He reports he has not had any chest pain or pressure on his chest. He has had a lot of abdominal fullness. PAST MEDICAL HISTORY: Significant for: 1. History of atrial fibrillation on chronic anticoagulation. 2. Chronic congestive heart failure, found to be diastolic. 3. Severe COPD on 3 L of oxygen. 4. Obstructive sleep apnea. 5. Diabetes mellitus type 2. 6. Morbid obesity. 7. Depression. 8. GERD. 9. Diffuse osteoarthritis. 10.Osteoporosis. 11.BPH. SOCIAL HISTORY: He is , has four children. Lives at the [facility] right now, but previous to that, lived with his son and [id number]. He quit smoking about a year ago. Quit drinking alcohol in the late 80s and retired from doing body work. PAST SURGICAL HISTORY: 1. Status post bilateral hernia repair. 2. Status post tonsillectomy. 3. Status post adenoidectomy. FAMILY HISTORY: Significant for brother with pulmonary issues, a sister with ADMIT: 09/03/2016 RM/LOC: 411 [facility] MR#: [id number] [address] [address] [place] [address] History and Physical SEX: M AGE: 71 : 1945 breast cancer. ALLERGIES: SPIRONOLACTONE, HYDROCODONE, WELL BUPROPION. MEDICATIONS: Currently are diltiazem 120 p.o. daily, senna two tabs p.o. b.i.d., eplerenone 25 mg p.o. daily, famotidine 20 mg p.o. b.i.d., finasteride 5 mg p.o. daily, gabapentin 300 mg p.o. at bedtime, guaifenesin 400 mg p.o. four times daily, isosorbide mononitrate 30 mg p.o. daily, Lorazepam 0.5 mg p.o. q.8 hours p.r.n., metolazone 2.5 mg p.o. daily, Remeron 30 mg p.o. at bedtime, potassium 20 mg p.o. b.i.d., sodium chloride two sprays b.i.d., torsemide 50 mg p.o. q. morning, and tramadol 50 mg p.o. q.6 hours p.r.n. REVIEW OF SYSTEMS: Obtained, was otherwise essentially negative. PHYSICAL EXAMINATION: GENERAL: He is alert and oriented. He seems to be in no apparent distress. His pupils are round and reactive. Oropharynx has dry mucous membranes. NECK: Supple. HEART: Distant. It is a normal rate with an irregularly irregular rhythm. LUNGS: Have coarse rales bilaterally. ABDOMEN: Quite obese and rotund and soft. EXTREMITIES: 2 to 3+ lower extremity edema. ASSESSMENT AND PLAN: 1. Hyponatremia. At this time, we will go ahead and check some urine lytes. We will go ahead and get a urine osmolality as well as a serum osmolality, a thyroid and adrenal study. We will restrict his fluids. I suspect he is somewhat intravascularly volume depleted. We will hold his Lasix. 2. Acute kidney failure. We will check his urine lytes. We will do a kidney ultrasound and give him some gentle hydration. 3. Hallucinations. He did have a CT scan two days ago that was negative. 4. Severe chronic obstructive pulmonary disease. 5. Diabetes mellitus. 6. History of diastolic congestive heart failure. 7. Equivocal troponin I. 8. Code status. The patient would like to have everything done. I spent over 45 minutes in the diagnosis, admission, and evaluation of this patient. Cally Estrada MD/ mack JOB #: [id number] CC: Cally Estrada, Attending Physician Cally Estrada, Family Physician
--- NOTE | ~2016-09-03 | ECH ---
Transthoracic Echocardiography Report (TTE) Demographics Patient Name NICKY CASILLAS Date of Study 09/05/2016 Patient Number [id number] Visit Number [id number] Date of 1945 Room Number 411 Accession Number [id number] Gender Male Age 71 year(s) Referring Sean Irwin Anesthesiologist Екатерина Muir MD [facility] Physician Interpreting Marly Brock MD Track Repairer Helper Physician Supervising Ordering Physician Sean Irwin MD/MICHAEL GUAMAN Nurse Stress Customs Verifier Conclusions Summary Technically difficult exam. The estimated left ventricular ejection fraction is 55-60%. There is mild to moderate aortic regurgitation by color Doppler. Procedure Type of Study TTE procedure:Echo Complete SF. Procedure Date Date: 09/05/2016 Start: 08:09 AM Technical Quality: Fair due to poor acoustical window. Indications:Elevated Troponin, Atrial fibrillation and Diabetes. Appropriate Use Criteria: 9 Height: 68 inches Weight: 237 pounds BSA: 2.2 m Rhythm: Atrial fibrillation HR: 110 bpm BP: 110/58 mmHg M-Mode/2D Measurements LV Diastolic Dimension: 4.13 cm LV Systolic Dimension: 2.54 cm LV Septum Diastolic: 1.02 cm LV PW Diastolic: 1 cm AO Root Dimension: 3.54 cm Cardiac Output: 4.36 l/min LA Dimension: 3.66 cm Cardiac Index: 1.98 l/min*m RV Diastolic Dimension: 4.04 cm LA volume index: 21 ml/m LVOT: 2.13 cm LVOT VTI: 11.13 cm RV Base: 3.4 cm LV Stroke volume: 39.64 ml RV Mid: 72 cm LV Stroke volume index: 18.02 ml/m TAPSE: 1.4 cm TDI-S': 14 cm/s Doppler Measurements AV Peak Velocity: 1.2 m/s MV Peak E-Wave: 0.99 m/s AV Peak Gradient: 5.76 mmHg AV Mean Gradient: 2.83 mmHg MV P1/2t: 57.2 msec LVOT Peak Velocity: 0.71 m/s AV Area (Continuity):2.24 cm AV P1/2t: 645.8 msec MV Area (PHT): 3.84 cm TR Velocity:2.29 m/s PV Peak Velocity: 0.79 m/s TR Gradient:20.98 mmHg PV Peak Gradient: 2.51 mmHg Estimated RAP:3 mmHg Estimated PASP: 23.98 mmHg Estimated RVSP: 24 mmHg E' Septal Velocity: 0.07 m/s E' Lateral Velocity: 0.09 m/s RA Area: 16.04 cm Findings Left Ventricle Normal left ventricle size and function. Diastolic function indeterminate due to patient's arrhythmia. Right Ventricle Normal right ventricle structure and function. Left Atrium Normal left atrial size. Right Atrium Normal right atrial size. Mitral Valve Mild mitral annular calcification. Trivial mitral regurgitation by color Doppler. Aortic Valve The aortic valve is mildly sclerotic. There is mild to moderate aortic regurgitation by color Doppler. Tricuspid Valve Normal tricuspid valve structure and function. Mild tricuspid regurgitation by color Doppler. Normal pulmonary pressures. Pulmonic Valve The pulmonic valve is not well visualized. Trivial pulmonic valve regurgitation by color Doppler. Pericardial Effusion No evidence of pericardial effusion. Miscellaneous Visualized portions of the aortic root and ascending aorta appear normal in size. Pleural Effusion No evidence of pleural effusion. Signature
--- NOTE | 2016-09-04 13:05 | ER ---
ADMIT: 09/03/2016 RM/LOC: 411 [facility] MR#: [id number] [address] [facility] [address] [place] [phone] NICKY CASILLAS [address] [place] [address] Emergency Room Report SEX: M AGE: 71 : 1945 DATE: 09/03/2016 HISTORY OF PRESENT ILLNESS: The patient is a 71-year-old male, came here with chief complaint of shortness of breath and dizziness and near-fainting for 2 days. The patient states for the last 2 days, he felt generalized weakness and lightheadedness. Yesterday, the patient was in the ER and got a chest x- ray and CT of the head, which were noncontributory. The patient was discharged to home and came back with similar symptoms as well as shortness of breath. The patient has history of COPD, on 3 L continuous home oxygen; history of CHF; diabetes; AFib, on Eliquis. The patient denies any headaches, chest pain, abdominal pain, or back pain. The patient denies any tenderness or swelling in extremities. PHYSICAL EXAMINATION: VITAL SIGNS: The patient was in [id number] respiratory distress, was tachypneic with respiratory rate of 28, O2 saturation was 95% on 3 L nasal cannula, heart rate was in 90s, blood pressure was stable, the patient was afebrile. GENERAL: The patient was alert, answering the question, well cooperative. HEAD and NECK: Normal and noncontributory. CHEST: Has mild distress with mild wheezing bilaterally without any crackles. HEART: Normal S1, S2 without any murmurs or gallops. ABDOMEN: Soft and nontender. EXTREMITIES: Non-swollen and non-tender. NEURO: Grossly normal. LABORATORY DATA AND IMAGING: Chest x-ray showed interstitial edema and emphysema. EKG showed atrial fibrillation with rate less than 100. White blood cell was 9.3 with hemoglobin of 13.2 and platelets of 182,000. Sodium was decreased to 121, with potassium of 2.7, and BUN was 34, with creatinine of 1.8. The last creatinine of the patient a month ago was 1.0. ProBNP was 1600, and troponin was also elevated to 0.16. EMERGENCY ROOM COURSE: The patient received K-Dur in the ER, 40 mEq p.o. The patient received half a liter of normal saline IV. The patient received 2 breathing treatments with DuoNeb nebulizer. Respiratory rate decreased to 20, after the breathing treatment. DIAGNOSES: The patient was admitted to Internal Medicine for acute kidney injury, hyponatremia, hypokalemia, rule out [id number] myocardial infarction. Jalen Dugan MD/ mack JOB #: [id number] CC: Cally Estrada MD, Attending Physician Cally Estrada MD, Family Physician
[2016-09-10] MEDS ORDERED: CARDIZEM CD DP120 MG PO (11:45)
[2016-09-10] MEDS ORDERED: ASA CHILDREN'S81 MG PO (11:45)
[2016-09-10] MEDS ORDERED: PEPCID DPS20 MG PO (11:46)
[2016-09-10] MEDS ORDERED: ORGAN-I NR200 MG PO (11:46)
[2016-09-10] MEDS ORDERED: ELIQUIS5 MG PO (11:46)
[2016-09-10] MEDS ORDERED: NEURONTIN DPS300 MG PO (11:46)
[2016-09-10] MEDS ORDERED: CARVEDILOL3.125 MG PO (11:46)
[2016-09-10] MEDS ORDERED: LIPITOR DPS10 MG PO (11:46)
[2016-09-10] MEDS ORDERED: IMDUR DPS30 MG PO (11:46)
[2016-09-10] MEDS ORDERED: SENOKOT S1 TAB PO (11:47)
[2016-09-10] MEDS ORDERED: PROSCAR DPS5 MG PO (11:47)
[2016-09-10] MEDS ORDERED: VIBRAMYCIN-DPS100 M2 PO (11:47)
[2016-09-10] MEDS ORDERED: REMERON DPS30 MG PO (11:47)
[2016-09-10] MEDS ORDERED: DULERA 200/58.8 GM IH (11:48)
[2016-09-10] MEDS ORDERED: DUONEB DPS3 ML IH (11:48)
[2016-09-10] MEDS ORDERED: OCEAN NASAL MIS45 ML IH (11:48)
--- NOTE | 2016-09-19 07:43 | DS ---
ADMIT: 09/03/2016 RM/LOC: 411 [facility] MR#: [id number] 2620 [facility] [address] [place], [place] [address] NICKY CASILLAS [address] [place] [address] Discharge Summary SEX: M AGE: 71 : 1945 ADMISSION DATE: 09/03/2016 DISCHARGE DATE: 09/09/2016 DISCHARGE DIAGNOSES: 1. Confusion. 2. Hyponatremia. 3. Hypokalemia. 4. Positive troponin. 5. Diabetes mellitus. 6. Obstructive sleep apnea. 7. Acute kidney injury. 8. Acute diastolic on chronic diastolic CHF (chronic heart failure). 9. Severe end-stage COPD (chronic obstructive pulmonary disease), on chronic oxygen. 10.Bronchiectasis. 11.Obstructive sleep apnea. 12.Depression. 13.Gastroesophageal reflux disease. 14.History of atrial fibrillation, on chronic anticoagulation. 15.BPH (benign prostatic hypertrophy). HOSPITAL COURSE: The patient was admitted with acute confusion, hyponatremia, hypokalemia, and hypomagnesemia. He had fluid restriction and was given oxygen, steroids, and antibiotics for his COPD exacerbation. He gradually improved. Every day, his sodium improved by about 3-5 points. At the time of discharge, his sodium was 134, I believe. Otherwise, he is doing quite well and the plan was for him to be discharged home back to the [facility]. He was on his baseline amount of oxygen. DISCHARGE INSTRUCTIONS: 1. Aspirin 81 mg p.o. daily. 2. Cardizem 120 p.o. daily, hold if systolic less than 110. 3. Coreg 3.125 p.o. b.i.d., hold if systolic less than 110. 4. Prednisone 15 mg p.o. daily x5, then 10 mg p.o. daily x5, then stop. 5. Eliquis 5 mg p.o. b.i.d. 6. Imdur 30 mg p.o. at bedtime. 7. Lipitor 10 mg p.o. at bedtime. 8. Neurontin 300 mg p.o. at bedtime. 9. Mucinex 400 mg p.o. q.i.d. ADMIT: 09/03/2016 RM/LOC: 411 [facility] MR#: [id number] 2620 [facility] [address] [place], [place] [address] NICKY CASILLAS [address] [place] [address] Discharge Summary SEX: M AGE: 71 : 1945 10.Pepcid 20 mg p.o. b.i.d. 11.Proscar 5 mg p.o. daily. 12.Remeron 30 mg p.o. at bedtime. 13.Senokot 2 tabs p.o. b.i.d. 14.Vibramycin 100 mg p.o. b.i.d. x5. 15.Dulera. 16.DuoNeb q.i.d. 17.Mucomyst b.i.d. 18.A few other p.r.n. medications. 19.Demadex 50 mg p.o. every other day. Fluid restriction 1.5 L. Otherwise, he is follow up with his PCP and have a BMP and mag in one week. I spent 45 minutes in the discharge planning and coordination of care for this patient. Cally Estrada MD/ jesus JOB #: [id number] CC: Cally Estrada MD, Attending Physician Cally Estrada MD, Family Physician
[2016-11-15] MEDS ORDERED: DELTASONE DPS20 MG PO (13:03)
[2016-11-15] MEDS ORDERED: LANOXIN125 MCG PO (13:14)
[2016-11-15] MEDS ORDERED: INSPRA25 MG PO (13:14)
[2016-11-15] MEDS ORDERED: LEVAQUIN DPS750 MG PO (13:17)
[2016-11-15] MEDS ORDERED: LIPITOR DPS10 MG PO (13:18)
[2016-11-15] MEDS ORDERED: MIRALAX PACKET17 GM PO (13:18)
[2016-11-15] MEDS ORDERED: XARELTO20 MG PO (13:21)
[2016-11-15] MEDS ORDERED: MUCOMYST 20% IH (13:22)
[2016-11-15] MEDS ORDERED: NOVOLOG100 UNIT/2 SQ (13:23)
[2016-11-15] MEDS ORDERED: ACETAMINOPHEN325 MG PO (13:35)
[2016-11-15] MEDS ORDERED: ACETYLCYST200 MG/1 M IH (13:36)
[2016-11-15] MEDS ORDERED: PROVENTIL2.5 MG/3 M IH (13:36)
[2016-11-15] MEDS ORDERED: FOSAMAX70 MG PO (13:38)
[2016-11-15] MEDS ORDERED: BIOTENE PO (13:39)
[2016-11-15] MEDS ORDERED: DULCOLAX-DPS10 MG PR (13:40)
[2016-11-15] MEDS ORDERED: SYMBICORT160 MCG/6 IH (13:41)
[2016-11-15] MEDS ORDERED: VITAMIN D-32000 UNI1 PO (13:41)
[2016-11-15] MEDS ORDERED: CALTRATE-600 D600 MG PO (13:41)
[2016-11-15] MEDS ORDERED: FLEXERIL-DPS10 MG PO (13:42)
[2016-11-15] MEDS ORDERED: NITROSTAT0.4 MG SL (13:43)
[2016-11-15] MEDS ORDERED: ZAROXOLYN5 MG PO (13:44)
[2016-11-15] MEDS ORDERED: OXY IR DPS5 MG PO (13:44)
[2016-11-15] MEDS ORDERED: MIRALAX17 GM PO (13:45)
[2016-11-15] MEDS ORDERED: IMDUR DPS30 MG PO (13:46)
[2016-11-15] MEDS ORDERED: TORSEMIDE100 MG PO (13:49)
[2016-11-15] MEDS ORDERED: POTASSIUM CHLO20 MEQ PO (13:49)
[2016-11-15] MEDS ORDERED: SODIUM CHLORIDE45 ML NS (13:50)
== END 2016-09-09 10:34 | DRG 640 ==
LOC: ER 18:32 → 4PCU 20:30
PROVIDERS: ADMIT Internal Medicine
DX: E87.1 Hypo-osmolality and hyponatremia (principal); I50.33 Acute on chronic diastolic (congestive) heart failure; N17.9 Acute kidney failure, unspecified; G93.41 Metabolic encephalopathy; I95.9 Hypotension, unspecified; Z99.81 Dependence on supplemental oxygen; E83.42 Hypomagnesemia; J44.1 Chronic obstructive pulmonary disease with (acute) exacerbation; E11.9 Type 2 diabetes mellitus without complications; I48.91 Unspecified atrial fibrillation; R44.3 Hallucinations, unspecified; R41.0 Disorientation, unspecified; E87.6 Hypokalemia; J47.9 Bronchiectasis, uncomplicated; R79.89 Other specified abnormal findings of blood chemistry; F32.9 Major depressive disorder, single episode, unspecified; N40.0 Benign prostatic hyperplasia without lower urinary tract symptoms; G47.33 Obstructive sleep apnea (adult) (pediatric); K21.9 Gastro-esophageal reflux disease without esophagitis; E66.01 Morbid (severe) obesity due to excess calories; Z79.01 Long term (current) use of anticoagulants; Z87.891 Personal history of nicotine dependence